=== PATIENT | male | born 1975 | race Caucasian/White ===

== ENCOUNTER → 2019-10-17 09:05 | Outpatient (BNVA) | payer OTHER, SELFPAY | PROVIDERS: Family Provider Nurse Practitioner Family; PCP Registered Nurse; Visit Provider Registered Nurse | DX: I10 Essential (primary) hypertension; E78.5 Hyperlipidemia, unspecified | CPT/HCPCS: 80053; 80061; 81000; 85025 ==

== ENCOUNTER → 2021-11-01 13:10 | Outpatient (BNVA) | payer SELFPAY | PROVIDERS: Family Provider Nurse Practitioner Family; PCP Registered Nurse; Visit Provider Emergency Medicine | DX: S99.922A Unspecified injury of left foot, initial encounter (principal); X58.XXXA Exposure to other specified factors, initial encounter | CPT/HCPCS: 73630 ==

== ENCOUNTER → 2022-07-07 08:37 | Outpatient (BNVA) | payer MEDICAID, SELFPAY | PROVIDERS: Family Provider Nurse Practitioner Family; PCP Registered Nurse; Visit Provider Registered Nurse | DX: Z71.3 Dietary counseling and surveillance (principal); I10 Essential (primary) hypertension; F34.1 Dysthymic disorder | CPT/HCPCS: 80053; 80061; 85025 ==

== ENCOUNTER 2022-07-28 17:44 | Emergency (ER) | payer MEDICAID, SELFPAY ==
[2022-07-28 17:55] VITALS: BP 161/97; PULSE 67; RESP 16; TEMP 36.7; O2SAT 97
--- NOTE | 2022-07-28 18:01 | ECG_ITS ---
[facility] Test Date: 2022-07-28 Pat Name: Marv Keenan Department: Room: Gender: Male Senior Scrum Master: : 1975 Requested By: Pop Juarez Order Number: [id number] Lilly MD: Archana Espino M.D. Measurements Intervals [place] Rate: 66 P: 9 SC: 162 QRS: 11 QRSD: 109 T: 195 QT: 420 QTc: 441 Interpretive Statements SINUS RHYTHM MODERATE T-WAVE ABNORMALITY, CONSIDER LATERAL ISCHEMIA [-0.1+ mV T-WAVE IN I/aVL/V5/V6] MODERATE T-WAVE ABNORMALITY, CONSIDER INFERIOR ISCHEMIA [-0.1+ mV T-WAVE IN II/aVF] No previous ECG available for comparison Electronically Signed On 07-28-2022 20:35:38 CDT by Archana Espino M.D. [id number]
--- NOTE | 2022-07-28 18:08 | XRR_ITS ---
PROCEDURE INFORMATION: Exam: XR Chest Exam date and time: 07/28/2022 6:14 PM Age: 47 years old Clinical indication: Pain; Chest pressure; Additional info: Cp TECHNIQUE: Imaging protocol: Radiologic exam of the chest. Views: 1 view. COMPARISON: No relevant prior studies available. FINDINGS: Lungs: Unremarkable. No consolidation. Pleural spaces: Unremarkable. No pleural effusion. No pneumothorax. Heart/Mediastinum: Unremarkable. No cardiomegaly. Bones/joints: Unremarkable. XR/XR chest 1V portable [id number] IMPRESSION: No acute findings.
--- NOTE | 2022-07-28 18:21 | W.ED.CHESTPA ---
HPI - Chest Pain General: Chief Complaint: Chest Pain Stated Complaint: BP issues Time Seen by Provider: 07/28/22 18:08 Source: patient Mode of arrival: ambulatory Limitations: no limitations History of Present Illness: 47-year-old male has a history of hypertension he states over the last week his blood pressures been running high states he is felt slightly dizzy over the weekend he states over the last 2 days he has been having some chest pressure goes to his left arm. The pain is mild he rates it a 2 out of 10 he denies any worsening improving factors denies any vomiting or diarrhea. Associated symptoms: Deny abdominal pain, dyspnea, fever(s), nausea or vomiting Review of Systems Const: Denies: fever(s), chills, body aches or change in appetite Eyes: Denies: eye discomfort ENMT: Denies: throat pain or dental pain Card: Reports: chest pain Resp: Denies: dyspnea GI: Denies: abdominal pain, nausea, vomiting or diarrhea : Denies: dysuria Musc: Denies: neck pain or back pain Skin/Breast: Denies: rash Neuro: Reports: numbness in extremities; Denies: headache(s) PFS ED PFSH: Medical History Depression Essential hypertension Social History Smoking and tobacco status: never smoked Second hand smoke exposure: No Smoking risk assessment/counseling performed?: No Alcohol intake: never Substance/Drug Use: never Physical Exam Const: COMMON NORMALS: no acute distress, patient oriented x3 and healthy appearing HENMT: COMMON NORMALS: normocephalic and atraumatic HEAD & SCALP: normocephalic and atraumatic Eye: COMMON NORMALS: Equal, round and reactive pupils present and EOMs intact bilaterally PUPIL: Yes Equal, round and reactive pupils present Neck/C-Spine: COMMON NORMALS: supple Chest: COMMONS NORMALS: normal inspection of the chest and normal palpation of entire chest wall Resp: COMMON NORMALS: normal respiratory effort, No retractions, No use of accessory muscles and clear to auscultation bilaterally AUSCULTATION: clear to auscultation bilaterally Cardio: COMMON NORMALS: regular rate, regular rhythm and No murmurs present (Cardio) RATE: regular rate RHYTHM: regular rhythm GI: COMMON NORMALS: Normal to inspection, nondistended, normoactive bowel sounds present, Soft to palpation, non-tender and no masses PALPATION: Yes Soft to palpation Extremity: COMMON NORMALS: normal to inspection and full ROM Neuro: COMMON NORMALS: patient oriented x3, moves all extremities and no focal motor deficits Psych: COMMON NORMALS: mental status grossly normal, Normal thought process present and cooperative THOUGHT PROCESS: Normal thought process present Skin: COMMON NORMALS: no rashes or lesions noted and no wounds GENERAL SKIN EXAM: no rashes or lesions noted Course Vital Signs: Vital signs: Vital Signs Temperature 98.1 F 07/28/22 17:55 Pulse Rate 72 07/28/22 22:09 Respiratory Rate 16 07/28/22 22:09 Blood Pressure 156/83 07/28/22 22:09 Pulse Oximetry 97 07/28/22 22:09 Oxygen Delivery Me thod Room Air 07/28/22 21:46 MDM - Chest Pain Medical Decision Making Patient presents with hypertension along with chest pain. He had complained of some facial droop this been going on for weeks not noticed any here on exam is neuro exam is normal with no deficits head CT was normal he is symptom-free currently after his blood pressure is improved I did offer admission he states he feels improved would like to go home his repeat troponin was normal we will increase his metoprolol from 25 twice daily to 50 twice daily he has an appointment with his PCP next week on the he is follow-up as scheduled did inform he likely should get an outpatient stress test return if worsening. Medical Records I reviewed the patient's medical records. Lab Data I reviewed the patient's lab results. 07/28/22 18:39 07/28/22 18:39 Radiology Impressions Chest X-Ray 07/28/22 18:08 IMPRESSION: No acute findings. Head CT 07/28/22 19:00 IMPRESSION: No acute intracranial abnormality. Laboratory Results WBC 8.6 10^3/uL (4.0-10.0) 07/28/22 18:39 RBC 5.60 10^6/uL (4.1-5.3) H 07/28/22 18:39 Hgb 16.0 g/dL (11.7-16.6) 07/28/22 18:39 Hct 46.7 % (42.0-52.0) 07/28/22 18:39 MCV 83.4 fl (80-94) 07/28/22 18:39 MCH 28.6 pg (28.0-34.0) 07/28/22 18: MCHC 34.3 g/dL (30.0-36.0) 07/28/22 18:39 RDW 12.2 % (12.1-15.1) 07/28/22 18:39 Plt Count 231 10^3/cmm (130-400) 07/28/22 18:39 MPV 9.5 fL (7.4-10.4) 07/28/22 18:39 Neut % (Auto) 53.0 % 07/28/22 18:39 Lymph % (Auto) 35.2 % 07/28/22 18:39 [place] % (Auto) 9.1 % 07/28/22 18:39 Eos % (Auto) 1.6 % 07/28/22 18:39 Baso % (Auto) 0.8 % 07/28/22 18:39 Neut # (Auto) 4.55 10^3/uL (1.8-7.7) 07/28/22 18:39 Lymph # (Auto) 3.0 10^3/uL (0.8-4.8) 07/28/22 18:39 [place] # (Auto) 0.8 10^3/uL (0.2-0.9) 07/28/22 18:39 Eos # (Auto) 0.1 10^3/uL (0.0-0.8) 07/28/22 18: Baso # (Auto) 0.1 10^3/uL (0.0-0.1) 07/28/22 18: Nucleated RBC % (auto) 0 % 07/28/22 18: Nucleated RBCs # 0.0 /100WBC 07/28/22 18:39 PT 13.40 SECONDS (12.1-14.9) 07/28/22 18:39 INR 0.99 (0.8-1.2) 07/28/22 18:39 Sodium 139 mmol/L (136-145) 07/28/22 18:39 Potassium 3.6 mmol/L (3.5-5.1) 07/28/22 18:39 Chloride 101 mmol/L (98-107) 07/28/22 18:39 Carbon Dioxide 23 mmol/L (22-29) 07/28/22 18:39 Anion Gap 18.6 (5-19) 07/28/22 18:39 BUN 19 mg/dL (6-20) 07/28/22 18:39 Creatinine 1.1 mg/dL (0.7-1.2) 07/28/22 18:39 GFR Calculation 71.8 mL/min (90-130) L 07/28/22 18:39 Glucose 78 mg/dL (65-115) 07/28/22 18:39 Calculated Osmolality 289 mOsm/kg (285-295) 07/28/22 18:39 Calcium 9.3 mg/dL (8.5-10.5) 07/28/22 18:39 Total Bilirubin 0.5 mg/dL (0.15-1.2) 07/28/22 18:39 AST 13 U/L (0-40) 07/28/22 18:39 ALT 22 U/L (0-41) 07/28/22 18:39 Alkaline Phosphatase 78 U/L (40-130) 07/28/22 18:39 Troponin T Baseline 10 ng/L (0-15) 07/28/22 18:39 Troponin T 120 Minute 9.82 ng/L (0-15) 07/28/22 20:37 Delta Troponin T -0.18 ABS# (0-10) L 07/28/22 20:37 Total Protein 7.5 g/dL (6.6-8.7) 07/28/22 18:39 Albumin 4.6 g/dL (3.5-5.2) 07/28/22 18:39 Globulin 2.9 g/dL (1.3-4.6) 07/28/22 18:39 Lipase 43 U/L (13-60) 07/28/22 18:39 EKG Data EKG 1: I personally reviewed and interpreted this EKG as follows: EKG interpretation date: 07/28/22 EKG interpretation time: 18:01 Interpretation: nsr hr [address] elevation t wave inveris in I and II qrs 109 qtc 433 Discharge Plan Discharge Patient Disposition: Home Clinical Impression: Chest pain, Hypertension Condition: Stable Prescriptions: New metoprolol tartrate 50 mg tablet 50 mg PO BID Qty: 60 0RF Discontinued metoprolol tartrate 25 mg tablet 25 mg PO BID 30 Days Qty: 60 0RF Rx Instructions: pt to take 50mg BID starting 07/20 No Action rosuvastatin 10 mg tablet 10 mg PO DAILY Qty: 90 1RF albuterol sulfate 90 mcg/actuation HFA aerosol inhaler 2 puff inhalation Q6H PRN (Reason: shortness of breath or wheezing) Qty: 8.5 0RF citalopram [Celexa] 40 mg tablet 40 mg PO DAILY Qty: 90 1RF amlodipine-olmesartan 5-20 mg tablet 1 tab PO DAILY Qty: 90 0RF Rx Instructions: Pt to start taking 2 tab of current script starting 07/07 Discharge Orders: Discharge ED (Routine); Ordered 07/28/22 Ordered By: Pop Juarez Referrals: Rosy Martinez, WEED CONTROL INSPECTOR [Primary Care Provider] - 1-3 days Discharge Diet: Advance as tolerated Discharge Activity: Resume usual activity Patient Instructions: Chest Pain (ED), Hypertension (ED) Coding Level of Care Code ED Loft Worker Head for Antoine Clark
[2022-07-28 18:43] VITALS: BP 167/113; PULSE 64; RESP 20; O2SAT 97
[2022-07-28 18:52] LABS: Basophils # 0.1 10^3/uL (0.0-0.1); Basophils % 0.8 %; Eosinophils # 0.1 10^3/uL (0.0-0.8); Eosinophils % 1.6 %; Hematocrit 46.7 % (42.0-52.0); Lymphocytes % 35.2 %; Mean Corpuscular HGB Conc 34.3 g/dL (30.0-36.0); Mean Corpuscular Hemoglobin 28.6 pg (28.0-34.0); Mean Corpuscular Volume 83.4 fl (80-94); Mean Platelet Volume 9.5 fL (7.4-10.4); Monocytes # 0.8 10^3/uL (0.2-0.9); Monocytes % 9.1 %; Neutrophils # 4.55 10^3/uL (1.8-7.7); Nucleated Red Blood Cells % 0 %; Platelet Count 231 10^3/cmm (130-400); Red Cell Distribution Width 12.2 % (12.1-15.1); White Blood Count 8.6 10^3/uL (4.0-10.0)
--- NOTE | 2022-07-28 19:00 | CTR_ITS ---
PROCEDURE INFORMATION: Exam: CT Head Without Contrast Exam date and time: 07/28/2022 7:54 PM Age: 47 years old Clinical indication: Pain; Headache; Additional info: UDRON TECHNIQUE: Imaging protocol: Computed tomography of the head without contrast. Radiation optimization: All CT scans at this facility use at least one of these dose optimization techniques: automated exposure control; mA and/or kV adjustment per patient size (includes targeted exams where dose is matched to clinical indication); or iterative reconstruction. REPORTING DATA: Count of CT and Cardiac NM exams in prior 12 months: This patient has received 0 known CTs and 0 known cardiac nuclear medicine studies in the 12 months prior to the current study. COMPARISON: No relevant prior studies available. RADIATION DOSE METRICS: Total DLP (mGy-cm): 1073 FINDINGS: Brain: No hemorrhage. No edema. Mild diffuse cerebral atrophy and sequela of chronic small vessel ischemic disease. No mass effect. Cerebral ventricles: No ventriculomegaly. Paranasal sinuses: Visualized sinuses are unremarkable. No fluid levels. Mastoid air cells: Visualized mastoid air cells are well aerated. Bones/joints: Unremarkable. No acute fracture. Soft tissues: Unremarkable. CT/CT head wo con* [id number] IMPRESSION: No acute intracranial abnormality.
[2022-07-28 19:07] LABS: Alanine Aminotransferase 22 U/L (0-41); Albumin Level 4.6 g/dL (3.5-5.2); Alkaline Phosphatase 78 U/L (40-130); Anion Gap 18.6 (5-19); Aspartate Amino Transferase 13 U/L (0-40); Blood Urea Nitrogen 19 mg/dL (6-20); Calcium 9.3 mg/dL (8.5-10.5); Carbon Dioxide 23 mmol/L (22-29); Chloride 101 mmol/L (98-107); Globulin 2.9 g/dL (1.3-4.6); Glomerular Filtration Rate 71.8 mL/min (90-130); Glucose 78 mg/dL (65-115); Lipase 43 U/L (13-60); Osmolality Calculated 289 mOsm/kg (285-295); Potassium 3.6 mmol/L (3.5-5.1); Sodium 139 mmol/L (136-145); Total Bilirubin 0.5 mg/dL (0.15-1.2); Total Protein 7.5 g/dL (6.6-8.7)
[2022-07-28 19:10] LABS: Troponin(5th) Baseline 10 ng/L (0-15)
[2022-07-28] MEDS: ondansetron 2 mg/ML SDV 2 mL 4 MG IVP (19:14)
[2022-07-28] MEDS: hyDRALAzine 20 mg/mL INJ 1 mL 10 MG IVP (19:16)
[2022-07-28] MEDS: morphine 4 mg/mL SDV 1 mL IVP (19:16)
[2022-07-28 19:17] LABS: INR 0.99 (0.8-1.2)
[2022-07-28] MEDS: aspirin 81 mg Chew Tablet 324 MG PO (19:17)
--- NOTE | 2022-07-28 19:19 | PC.NURSE ---
meds were pushed by Noah Segura RN
[2022-07-28 19:24] VITALS: BP 171/108; PULSE 68; RESP 13; O2SAT 97
[2022-07-28 19:30] VITALS: BP 138/81; PULSE 76; RESP 14; O2SAT 99
--- NOTE | 2022-07-28 20:08 | ECG_ITS ---
[facility] Test Date: 2022-07-28 Pat Name: Marv Keenan Department: Room: Gender: Male Emr Implementation Specialist: : 1975 Requested By: Pop Juarez Order Number: [id number] Lilly MD: Archana Espino M.D. Measurements Intervals [place] Rate: 62 P: 19 [place]: 191 QRS: 13 QRSD: 115 T: 195 QT: 450 QTc: 459 Interpretive Statements SINUS RHYTHM MODERATE INTRAVENTRICULAR CONDUCTION DELAY [110+ ms QRS DURATION] MODERATE T-WAVE ABNORMALITY, CONSIDER LATERAL ISCHEMIA [-0.1+ mV T-WAVE IN I/aVL/V5/V6] MODERATE T-WAVE ABNORMALITY, CONSIDER INFERIOR ISCHEMIA [-0.1+ mV T-WAVE IN II/aVF] Compared to ECG 07/28/2022 18:01:50 Intraventricular conduction delay now present T-wave abnormality still present Possible ischemia still present Electronically Signed On 07-28-2022 20:45:14 CDT by Archana Espino M.D. [id number]
[2022-07-28] MEDS: hyDRALAzine 20 mg/mL INJ 1 mL IVP (20:55)
[2022-07-28 20:59] LABS: Troponin 5 2HR 9.82 ng/L (0-15)
[2022-07-28 21:20] LABS: Troponin 5 2HR Delta -0.18 ABS# (0-10)
[2022-07-28 21:46] VITALS: BP 138/81; PULSE 79; RESP 13; O2SAT 99
[2022-07-28 22:09] VITALS: BP 156/83; PULSE 72; RESP 16; O2SAT 97
== END 2022-07-28 22:11 | disposition home or self-care (01) ==
PROVIDERS: Emergency Provider Emergency Medicine; PCP Registered Nurse
DX: R07.9 Chest pain, unspecified (principal); I10 Essential (primary) hypertension
CPT/HCPCS: 36415; 70450; 71045; 80053; 83690; 84484; 85025; 85610; 93005; 96374; 96375; 96376; 99285; J0360; J2270; J2405

== ENCOUNTER 2022-11-10 19:19 | Inpatient (IN) | payer MEDICAID, SELFPAY ==
[2022-11-10 19:30] VITALS: BP 226/137; PULSE 63; RESP 20; TEMP 36.9; O2SAT 94; BMI 40.7
--- NOTE | 2022-11-10 19:48 | ECG_ITS ---
[facility] Test Date: 2022-11-10 Pat Name: Marv Keenan Department: Room: Gender: Male Director Report: : 1975 Requested By: Neto Lane Order Number: [id number] Lilly MD: Mary Alice Oakes M.D. Measurements Intervals [place] Rate: 68 P: 50 MN: 195 QRS: 6 QRSD: 114 T: 171 QT: 454 QTc: 483 Interpretive Statements SINUS RHYTHM LEFT VENTRICULAR HYPERTROPHY AND ST-T CHANGE [VOLTAGE CRITERIA PLUS ST/T ABNORMALITY] Compared to ECG 07/28/2022 20:06:42 Left ventricular hypertrophy now present ST (T wave) deviation now present Intraventricular conduction delay no longer present T-wave abnormality no longer present Possible ischemia no longer present Electronically Signed On 11-10-2022 21:25:45 CDT by Mary Alice Oakes M.D. [id number]
--- NOTE | 2022-11-10 19:48 | CTR_ITS ---
PROCEDURE INFORMATION: Exam: CT Head Without Contrast Exam date and time: 11/10/2022 7:52 PM Age: 47 years old Clinical indication: Stroke-like symptoms; Lt upper extremity and lt lower extremity weakness; Additional info: Symptoms of acute stroke TECHNIQUE: Imaging protocol: Computed tomography of the head without contrast. Radiation optimization: All CT scans at this facility use at least one of these dose optimization techniques: automated exposure control; mA and/or kV adjustment per patient size (includes targeted exams where dose is matched to clinical indication); or iterative reconstruction. Other technique: STROKE PROTOCOL was implemented. REPORTING DATA: Count of CT and Cardiac NM exams in prior 12 months: This patient has received [address] and 0 known cardiac nuclear medicine studies in the 12 months prior to the current study. COMPARISON: CT head wo con* [id number] 07/28/2022 7:54 PM RADIATION DOSE METRICS: Total DLP (mGy-cm): 1154 FINDINGS: Brain: Mild white matter chronic microvascular changes are noted. No hemorrhage or evidence of acute infarction. Cerebral ventricles: No ventriculomegaly. Paranasal sinuses: Visualized sinuses are unremarkable. No fluid levels. Mastoid air cells: Visualized mastoid air cells are well aerated. Bones/joints: Unremarkable. No acute fracture. Soft tissues: Unremarkable. CT/CT head thrombolytic [id number] IMPRESSION: No acute intracranial abnormality. ASSESSMENT: ASPECTS ([place] Stroke Program Early CT Score) is 10.
[2022-11-10] MEDS: labetalol 5 mg/mL SDV 20mL 20 MG IVP ×2 (20:00→20:19)
[2022-11-10 20:01] LABS: Basophils # 0.1 10^3/uL (0.0-0.1); Eosinophils # 0.2 10^3/uL (0.0-0.8); Eosinophils % 2.1 %; Hematocrit 44.5 % (37-53); Lymphocytes # 3.1 10^3/uL (0.8-4.8); Lymphocytes % 37.6 %; Mean Corpuscular HGB Conc 35.3 g/dL (30-55); Mean Corpuscular Volume 85.1 fl (82-101); Mean Platelet Volume 9.6 fL (7.4-10.4); Monocytes % 11.8 %; Neutrophils # 3.84 10^3/uL (1.8-7.7); Neutrophils % 47.1 %; Nucleated Red Blood Cells % 0 %; Platelet Count 198 10^3/cmm (157-399); Red Blood Count 5.23 10^6/uL (3.85-5.65); Red Cell Distribution Width 12.5 % (12.1-15.1); White Blood Count 8.14 10^3/uL (3.29-11.43)
[2022-11-10 20:03] LABS: Glucose Point of Care 89 mg/dL (70-110)
[2022-11-10 20:10] VITALS: BP 219/121; PULSE 63; RESP 18; O2SAT 96
[2022-11-10 20:12] LABS: INR 1.01 (0.8-1.2); Partial Thromboplastin Time 29.4 SECONDS (23.9-36.7)
[2022-11-10] MEDS: LORazepam 2 mg/mL INJ 1 mL 1 MG IVP (20:16)
--- NOTE | 2022-11-10 20:19 | W.ED.AMS ---
HPI - Altered Mental Status General: Chief Complaint: Altered Mental Status Stated Complaint: ams Time Seen by Provider: 11/10/22 19:27 History of Present Illness: Patient presents to the ER for increased confusion and left sided weakness. states they got into an argument at approximately 430. After that he started having feelings of itching and burning all over his head started hurting his back. His blood pressure went up. And he was talking and not making sense. Patient does have a history of high blood pressure that they have been working on for the last several weeks to try to lower. Patient has never had any strokelike symptoms or deficits in the past. Code stroke was called patient was rushed to ct and a patient arrived back in ER shortly after Dr. Schmidt was there to evaluate the patient. Review of Systems General: Reports: 10 or more systems reviewed and unremarkable except in HPI and below PFSH ED PFSH: Medical History Depression Essential hypertension Social History Smoking and tobacco status: never smoked Second hand smoke exposure: No Smoking risk assessment/counseling performed?: No Alcohol intake: never Substance/Drug Use: never Physical Exam Const: COMMON NORMALS: no acute distress, average body habitus, patient oriented x3, no limitations, healthy appearing, alert and well nourished HENMT: COMMON NORMALS: normocephalic, atraumatic, hearing grossly normal bilaterally, external ears normal, Normal external nose present and moist oral mucous membranes HEAD & SCALP: normocephalic and atraumatic NOSE: Normal external nose present EXTERNAL EAR: Yes external ears normal Eye: COMMON NORMALS: Equal, round and reactive pupils present, EOMs intact bilaterally, conjunctivae normal and no scleral icterus CONJUNCTIVA: Yes conjunctivae normal PUPIL: Yes Equal, round and reactive pupils present Neck/C-Spine: COMMON NORMALS: full ROM, no lymphadenopathy, supple, no meningeal signs, no JVD and Thyroid normal THYROID: Thyroid normal Lymph: LYMPHATIC: no lymphadenopathy noted and no lymphedema noted Chest: COMMONS NORMALS: normal inspection of the chest and normal palpation of entire chest wall Resp: COMMON NORMALS: normal respiratory effort, No retractions, No use of accessory muscles and clear to auscultation bilaterally AUSCULTATION: clear to auscultation bilaterally Cardio: COMMON NORMALS: no JVD, regular rate, regular rhythm, S1 normal heart sound present, S2 normal heart sound present, No gallops present (Cardio), No clicks present (Cardio), No murmurs present (Cardio) and No rub (Cardio) RATE: regular rate RHYTHM: regular rhythm HEART SOUNDS: S1 normal heart sound present and S2 normal heart sound present GI: COMMON NORMALS: Normal to inspection, nondistended, normoactive bowel sounds present, Soft to palpation, non-tender, No hepatosplenomegaly present and no masses PALPATION: Yes Soft to palpation and Yes No hepatosplenomegaly present : COMMON NORMALS: Yes no CVA tenderness BLADDER/KIDNEY EXAM: Yes no CVA tenderness Back/Pelvis: COMMON NORMALS: no CVA tenderness Neuro: COMMON NORMALS: patient oriented x3 SENSORIUM/ORIENTATION: Yes alert MENINGEAL SIGNS: Yes no meningeal signs OTHER: Dr. Schmidt at bedside to evaluate patient she scored patient to for left lower extremity weakness. Course Vital Signs: Vital signs: Vital Signs Temperature 98.5 F 11/10/22 19:30 Pulse Rate 79 11/10/22 21:15 Respiratory Rate 17 11/10/22 21:15 Blood Pressure 179/113 11/10/22 21:15 Pulse Oximetry 94 11/10/22 21:15 MDM - Altered Mental Status Medical Decision Making Patient presented to the ER with complaints of left-sided weakness, altered mental status, and hypertension. Code stroke was called patient was immediately sent down to CT scanner where he elicited some left-sided upper extremity and lower extremity weakness and very mild left facial droop. Upon arrival back to the room Dr. Schmidt was at bedside and performed neuro exam along with questioning. She gave patient a NIH scale score 2 secondary to lower extremity weakness on his left side. She is against giving the patient tPA due to such a low score and elevated blood pressure. His symptoms are improving as his blood pressure is normalizing.Jacob Lawson who agreed to place the patient observation for hypertensive encephalopathy.. Differential Diagnosis Likely altered mental status; Unlikely alcoholic intoxication, delirium, dementia, hypoglycemia, hyponatremia, subarachnoid hemorrhage or sepsis Medical Records I reviewed the patient's medical records. Lab Data I reviewed the patient's lab results. 11/10/22 19:50 11/10/22 19:[address] 11/10/22 19:48 IMPRESSION: No acute intracranial abnormality. ASSESSMENT: ASPECTS ([place] Stroke Program Early CT Score) is 10. Laboratory Results WBC 8.14 10^3/uL (3.29-11.43) 11/10/22 19:50 RBC 5.23 10^6/uL (3.85-5.65) 11/10/22 19:50 Hgb 15.70 g/dL (11.27-16.99) 11/10/22 19:50 Hct 44.5 % (37-53) 11/10/22 19:50 MCV 85.1 fl (82-101) 11/10/22 19:50 MCH 30.0 pg (27-33) 11/10/22 19:50 MCHC 35.3 g/dL (30-55) 11/10/22 19:50 RDW 12.5 % (12.1-15.1) 11/10/22 19:50 Plt Count 198 10^3/cmm (157-399) 11/10/22 19:50 MPV 9.6 fL (7.4-10.4) 11/10/22 19:50 Neut % (Auto) 47.1 % 11/10/22 19:50 Lymph % (Auto) 37.6 % 11/10/22 19:50 [place] % (Auto) 11.8 % 11/10/22 19:50 Eos % (Auto) 2.1 % 11/10/22 19:50 Baso % (Auto) 1.0 % 11/10/22 19:50 Neut # (Auto) 3.84 10^3/uL (1.8-7.7) 11/10/22 19:50 Lymph # (Auto) 3.1 10^3/uL (0.8-4.8) 11/10/22 19:50 [place] # (Auto) 1.0 10^3/uL (0.2-0.9) H 11/10/22 19:50 Eos # (Auto) 0.2 10^3/uL (0.0-0.8) 11/10/22 19:50 Baso # (Auto) 0.1 10^3/uL (0.0-0.1) 11/10/22 19:50 Nucleated RBC % (auto) 0 % 11/10/22 19:50 Nucleated RBCs # 0.0 /100WBC 11/10/22 19:50 PT 13.60 SECONDS (12.1-14.9) 11/10/22 19:50 INR 1.01 (0.8-1.2) 11/10/22 19:50 APTT 29.4 SECONDS (23.9-36.7) 11/10/22 19:50 Sodium 140 mmol/L (136-145) 11/10/22 19:50 Potassium 3.4 mmol/L (3.5-5.1) L 11/10/22 19:50 Chloride 100 mmol/L (98-107) 11/10/22 19:50 Carbon Dioxide 28 mmol/L (22-29) 11/10/22 19:50 Anion Gap 15.4 (5-19) 11/10/22 19:50 BUN 22 mg/dL (6-20) H 11/10/22 19:50 Creatinine 1.2 mg/dL (0.7-1.2) 11/10/22 19:50 GFR Calculation 64.9 mL/min (90-130) L 11/10/22 19:50 Glucose 89 mg/dL (65-115) 11/10/22 19:50 POC Glucose 89 mg/dL (70-110) 11/10/22 19:59 Calculated Osmolality 293 mOsm/kg (285-295) 11/10/22 19:50 Calcium 9.8 mg/dL (8.5-10.5) 11/10/22 19:50 Magnesium 2.0 mg/dL (1.7-2.3) 11/10/22 19:50 Total Bilirubin 0.7 mg/dL (0.15-1.2) 11/10/22 19:50 AST 18 U/L (0-40) 11/10/22 19:50 ALT 28 U/L (0-41) 11/10/22 19:50 Alkaline Phosphatase 80 U/L (40-130) 11/10/22 19:50 Total Protein 7.6 g/dL (6.6-8.7) 11/10/22 19:50 Albumin 4.7 g/dL (3.5-5.2) 11/10/22 19:50 Globulin 2.9 g/dL (1.3-4.6) 11/10/22 19:50 TSH 2.52 uIU/mL (0.27-4.20) 11/10/22 19:50 EKG Data EKG 1: I personally reviewed and interpreted this EKG as follows: EKG interpretation date: 11/10/22 EKG interpretation time: 20:18 Prior EKG tracings: not available for review Interpretation: EKG showed ventricular rate 60 beats minute, MD interval 195, QRS duration 114, sinus rhythm, left ventricular hypertrophy and ST T wave changes. Discharge Plan Discharge Patient Disposition: Placed in Observation Clinical Impression: Essential hypertension, Altered mental status, Encephalopathy, hypertensive Coding Level of Care Code ED Lacquer Polisher for Antoine Clark
[2022-11-10 20:32] LABS: Alanine Aminotransferase 28 U/L (0-41); Albumin Level 4.7 g/dL (3.5-5.2); Alkaline Phosphatase 80 U/L (40-130); Anion Gap 15.4 (5-19); Aspartate Amino Transferase 18 U/L (0-40); Blood Urea Nitrogen 22 mg/dL (6-20); Calcium 9.8 mg/dL (8.5-10.5); Carbon Dioxide 28 mmol/L (22-29); Chloride 100 mmol/L (98-107); Globulin 2.9 g/dL (1.3-4.6); Glomerular Filtration Rate 64.9 mL/min (90-130); Glucose 89 mg/dL (65-115); Osmolality Calculated 293 mOsm/kg (285-295); Potassium 3.4 mmol/L (3.5-5.1); Sodium 140 mmol/L (136-145); Thyroid Stimulating Hormone 2.52 uIU/mL (0.27-4.20); Total Bilirubin 0.7 mg/dL (0.15-1.2); Total Protein 7.6 g/dL (6.6-8.7)
[2022-11-10 21:15] VITALS: BP 179/113; PULSE 79; RESP 17; O2SAT 94
--- NOTE | 2022-11-10 21:16 | PC.NURSE ---
2015 Stroke alert was called at 1941. Dr [address] in CT looking at head CT. Patient has left side deficits on arrival. Originally had said there was a neuro change a hour before arrival. Dr Caldwell came and assessed patient and stated the patient started having neuro changes at 430 pm, but in the last hour before arrival patient had a worsening and she brought him in. Patient bp elevated, labetolol given twice. TPA was not given as blood pressure was too high, and window for the drug was closing, dr caldwell made decision to not give TPA. 2118 Patient is now able to move left side. went home briefly, and will be returning tonight.
[2022-11-10 21:52] VITALS: BP 158/108; PULSE 79; RESP 15; O2SAT 92
[2022-11-10 22:25] VITALS: BP 196/30; PULSE 70; RESP 15; TEMP 36.8; O2SAT 96
[2022-11-10] MEDS: hyDRALAzine 20 mg/mL INJ 1 mL 10 MG IVP (23:21)
[2022-11-10] MEDS: hyDRALAzine 50 mg Tablet PO (23:21)
[2022-11-10 23:50] VITALS: PULSE 82; RESP 16; TEMP 36.4; O2SAT 96
[2022-11-10 23:57] LABS: Add Urine Microscopic? YES; Bilirubin Urine Neg (Negative); Blood Urine 2+ (Negative); Glucose Urine UA Norm (Normal); Ketones Urine Negative (Negative); Leukocyte Esterase Urine Negative (Negative); Nitrate Urine Negative (Negative); Protein Urine Neg (Negative); Urine Appearance Clear (CLEAR); Urine Color Yellow (Yellow); Urobilinogen Urine Neg (Negative); pH Urine 5 (5-7)
[2022-11-10 23:58] LABS: Add Urine Culture? No; Amphetamines Screen Urine Negative (Negative); Bacteria Urine TRACE /hpf; Barbiturates Screen Urine Negative (Negative); Benzodiazepines Screen Urine Positive (Negative); Cocaine Screen Urine Negative (Negative); Mucus Urine 1+ /hpf; Opiate Screen Urine Negative (Negative); PCP Screen Urine Negative (Negative); RBC Urine 0-4 /hpf (0-2); THC Screen Urine Negative (Negative)
[2022-11-11] VITALS (17 sets, daily range): BP systolic 130–184; BP diastolic 64–122; PULSE 60–81; RESP 15–17; TEMP 36.7–36.9; O2SAT 95–97
--- NOTE | 2022-11-11 00:50 | PM.HP ---
Providers/Chief Complaint Admitting Physician: Adore Lawson MD Primary Care Provider: FROYLAN Bae Chief Complaint: ams History of Present Illness Marv Keenan is a 47 year old male with history of hypertension anxiety seasonal allergies was brought in by the for for abnormal behavior and not feeling well. As per the they had an argument this afternoon when he suddenly started leaning down had itching all over the body and had irrelevant speech. On arrival in ER he complained of left lower leg weakness and was found to have altered mental status. BP at that time was 254/120 he received 40 mg labetalol and 1 mg Ativan following which BP was 178/99. Stroke code was initiated but on further evaluation it was found to be more psychogenic episode. He had a negative chest x-ray CT head and EKG was within normal limits. On further questioning on the floor, patient was alert awake oriented x3 with minimal weakness in the left lower leg. He was recently prescribed 4 different blood pressure medications by PCP but he was taking only p.o. chlorthalidone. He denies any dizziness fever nausea vomiting chest pain abdominal pain or urinary complaints. Did not have similar complaints in the past. Blood pressure was still 196/120 but he is asymptomatic. Review of Systems Narrative: As per HPI Medications/Allergies Home Medications Medication Instructions Recorded Confirmed Last Taken Type albuterol sulfate 90 mcg/actuation 2 puff inhalation Q6H PRN 06/09/22 11/10/22 Unknown Rx aerosol inhaler shortness of breath or wheezing #8.5 grams citalopram 40 mg tablet (Celexa) 40 mg PO DAILY #90 tabs 07/07/22 11/10/22 11/10/22 06:00 Rx metoprolol tartrate 50 mg tablet 50 mg PO BID #60 tabs 10/09/22 11/10/22 11/10/22 06:00 Rx rosuvastatin 10 mg tablet 10 mg PO DAILY #30 tabs 10/09/22 11/10/22 11/10/22 06:00 Rx chlorthalidone 25 mg tablet 25 mg PO DAILY 11/10/22 11/10/22 11/10/22 06:00 History Allergies Allergy/AdvReac Type Severity Reaction Status Date / Time No Known Allergies Allergy Verified 10/09/22 15:30 PFSH Acute PFSH: Medical History Depression Essential hypertension Social History Smoking and tobacco status: never smoked Second hand smoke exposure: No Smoking risk assessment/counseling performed?: No Alcohol intake: never Substance/Drug Use: never Vitals/I&O/Wt Last Vital Signs Temp 97.6 F 11/10/22 23:50 Pulse 82 11/10/22 23:50 Resp 16 11/10/22 23:50 BP 196/30 11/10/22 22:25 Pulse Ox 96 11/10/22 23:50 O2 Del Method Room Air 11/10/22 23:50 Weight last 48 hrs Weight 117.934 kg Physical Exam Narrative: He is alert awake oriented x3 not in acute distress. Obese Chest clear to auscultation bilaterally Cardiovascular NAD Abdomen NAD Extremities no pedal edema seen Neurological speech normal no sensory or motor deficits noted Data 11/10/22 19:50 11/10/22 19:50 CT Head: Radiologist's impression: No acute intracranial abnormality EKG 1: My Interpretation: NSR, LVH A&P Assessment and plan (1) Altered mental status: Qualifiers: Altered mental status type: unspecified Qualified Code(s): R41.82 - Altered mental status, unspecified (2) Encephalopathy, hypertensive: (3) Hypertensive urgency: Plan Patient was found to have altered mental status abnormal behavior and left lower extremity weakness likely secondary to hypertensive encephalopathy due to hypertensive urgency. Patient has not been taking blood pressure medications appropriately. Counseled and explained about the risks of high blood pressure Will start p.o. hydralazine 50 mg every 8 hours IV hydralazine 10 mg x 1 dose now Check 2D echo in a.m. Resume home medications Monitor blood pressure every 4 hours Cardiac diet He is full code for now Neurological deficits on admission resolving No further intervention needed Attestations Medical Necessity Statement*: He needs continued hospitalization for 2 days for management of hypertensive urgency Time Spent in Patient Care: 30 minutes Coding Level of Care Code Acute Code for Chg Fwd Diagnoses Altered mental status R41.82 Altered mental status type: unspecified Encephalopathy, hypertensive I67.4 Hypertensive urgency I16.0 Time Spent (min) 30
[2022-11-11] MEDS: lisinopril 20 mg Tablet PO ×2 (05:01→09:02)
[2022-11-11] MEDS: labetalol 5 mg/mL SDV 20mL 10 MG IVP (05:02)
[2022-11-11 05:53] LABS: NT Pro B Type Natriuretic Pept 205 pg/mL (0-125)
[2022-11-11] MEDS: amlodipine 5 mg Tablet PO (06:35)
[2022-11-11] MEDS: citalopram 20 mg Tablet 40 MG PO (09:02)
[2022-11-11] MEDS: hyDRALAzine 50 mg Tablet PO ×2 (09:02→15:30)
[2022-11-11] MEDS: atorvastatin 40 mg Tablet PO (09:02)
[2022-11-11] MEDS: famotidine 20 mg/2 mL INJ IVP ×2 (09:03→21:50)
--- NOTE | 2022-11-11 09:30 | USCV_ITS ---
Marv Keenan Age: 47 Gender: M : 1975 Exam Date: 11/11/2022 10:42 Ordering Phys: Govind Gloria MD Technologist: Arjun Elias Exam Location: [facility] [place] Indication: hypertension urgency BP: 182 / 127 HR: 69 Rhythm: Sinus Technical Quality: Adequate MEASUREMENTS (Male / Female) Normal Values 2D ECHO LVOT Diameter 2.0 cm LV Ejection Fraction MOD 2C 55.7 % LV Ejection Fraction 2C AL 56.6 % LA Diameter 3.7 cm LA Width 4.1 cm LA Height 5.9 cm RA Width 3.5 cm RA Height 4.9 cm Aorta at Sinotubular Diameter 2.5 cm IVC Diameter 2.0 cm M-MODE Aortic Annulus Diameter 3.1 cm LA Ao Ratio MM 1.0 MV E Point Septal Separation 0.8 cm DOPPLER AV Peak Velocity 157.7 cm/s LVOT Peak Velocity 105.0 cm/s AV Area Cont Eq vti 2.6 cm squared AV Area Cont Eq pk 2.2 cm squared MV Peak Velocity 92.0 cm/s MV Area PHT 4.0 cm squared Mitral E to A Ratio 0.9 MV E' Velocity 40.5 cm/s Mitral E to MV E' Ratio 10.7 Mitral E to LV E' Lateral Ratio 11.3 Mitral E to LV E' Septal Ratio 10.2 TR Peak Velocity 311.9 cm/s TR Peak Gradient 38.9 mmHg TR Mean Velocity 237.0 cm/s TR Mean Gradient 24.3 mmHg TR Velocity Time Integral 72.1 cm Right Atrial Pressure 3.0 mmHg Pulmonary Artery Systolic Pressu 41.9 mmHg PV Peak Velocity 112.0 cm/s RV Acceleration Time 0.2 s RV Ejection Time 0.3 s RV AcT/ET 0.6 FINDINGS Left Ventricle Normal left ventricular size, systolic function and wall thickness, with no regional wall motion abnormalities. Grade I/IV diastolic dysfunction (abnormal relaxation filling pattern), normal to mildly elevated filling pressures. Left ventricular ejection fraction is estimated at 55 %. Right Ventricle Normal right ventricular size and systolic function. Mild pulmonary hypertension, RVSP 41.9 mmHg. Right Atrium The right atrium is normal in size. Left Atrium The left atrium is normal in size. Mitral Valve Structurally normal mitral valve without significant stenosis or prolapse. There is no mitral regurgitation. Aortic Valve Structurally normal aortic valve without significant sclerosis or stenosis. There is no aortic regurgitation. Tricuspid Valve Structurally normal tricuspid valve without significant stenosis or regurgitation. Pulmonary artery systolic pressure is normal. Pulmonic Valve Pulmonic valve not well visualized. Pericardium Normal pericardium without effusion. Aorta Normal ascending aorta dimension. IVC The inferior vena cava appears normal. CONCLUSIONS Normal left ventricular size, systolic function and wall thickness, with no regional wall motion abnormalities. Grade I/IV diastolic dysfunction (abnormal relaxation filling pattern), normal to mildly elevated filling pressures. Left ventricular ejection fraction is estimated at 55 %. Normal right ventricular size and systolic function. Mild pulmonary hypertension, RVSP 41.9 mmHg. There are no prior echocardiogram studies to compare. Dr. Rosendo Lewis MD (Electronically Signed) Final Date: 11 November 2022 13:11 S
--- NOTE | 2022-11-11 09:30 | USCV_ITS ---
Marv Keenan Age: 47 Gender: M : 1975 Exam Date: 11/11/2022 10:20 Ordering Phys: Govind Gloria MD Technologist: Arjun Elias [place] [facility] [place]: AMS Risk Factors: Previous Vascular Surgery: Right Brachial BP: / Left Brachial BP: / Right Left Velocity (cm/s) Spectral Plaque Velocity (cm/s) Spectral Plaque Syst/Diast Broadening Syst/Diast Broadening 80.80/ 17.10 Prox CCA 117.70/ 13.00 80.80/ 16.30 Mid CCA 88.00 / 16.20 62.90/ 13.20 Distal CCA 71.80 / 12.00 51.30/ 14.50 Prox ICA 42.70 / 15.50 47.40/ 17.60 Mid ICA 79.50 / 23.90 65.20/ 25.10 Distal ICA 74.30 / 28.20 119.10 ECA 118.00 0.59 ICA/CCA 0.90 Antegrade Vertebral Antegrade 27.20/ 9.60 cm/s 50.40/ 16.20 cm/s Tri Subclavian Tri 94.00 106.0 0 CONCLUSIONS Right ICA stenosis <50%. Left ICA stenosis <50%. Intimal thickening in the common carotid arteries and internal carotid arteries bilaterally. Normal antegrade Doppler flow noted in the right vertebral artery. Normal antegrade Doppler flow noted in the left vertebral artery. Anup French MD (Electronically Signed) Final Date: 11 November 2022 15:46 S
[2022-11-11] MEDS: metoprolol tartrate 50 mg Tablet PO ×2 (10:13→19:13)
[2022-11-11] MEDS: chlorthalidone 25 mg Tablet PO (10:13)
[2022-11-11 10:23] LABS: Alcohol Level < 10 mg/dL (0-10)
[2022-11-11 10:29] LABS: Alanine Aminotransferase 24 U/L (0-41); Alkaline Phosphatase 67 U/L (40-130); Aspartate Amino Transferase 18 U/L (0-40); Blood Urea Nitrogen 21 mg/dL (6-20); Calcium 8.9 mg/dL (8.5-10.5); Carbon Dioxide 25 mmol/L (22-29); Chloride 102 mmol/L (98-107); Globulin 2.8 g/dL (1.3-4.6); Glomerular Filtration Rate 71.8 mL/min (90-130); Glucose 81 mg/dL (65-115); Iron 90 ug/dL (59-158); Osmolality Calculated 294 mOsm/kg (285-295); Sodium 141 mmol/L (136-145); Total Bilirubin 0.6 mg/dL (0.15-1.2); Total Iron Binding Capacity 243 mcg/dl; Total Protein 6.8 g/dL (6.6-8.7); Unsaturated Iron Binding 153 ug/dL (112-347)
[2022-11-11 10:45] LABS: Vitamin B12 845 pg/mL (232-1245)
[2022-11-11] MEDS: acetaminophen 325 mg Tablet 650 MG PO (11:22)
--- NOTE | 2022-11-11 13:34 | PM.PN ---
Subjective Subjective: Admitted overnight. H&P and labs appreciated. Examination patient lying comfortably in bed, AOx3. Denies any nausea, vomiting, headache. States he is feeling a lot better. States usually at home his blood pressure ranges from 1 80-200 systolics with 110 diastolics. Has remained on room air. Vitals/I&O/Wt Last Vital Signs Temp 98.3 F 11/11/22 11:58 Pulse 81 11/11/22 11:58 Resp 17 11/11/22 11:58 BP 160/96 11/11/22 11:58 Pulse Ox 96 11/11/22 11:58 O2 Del Method Room Air 11/11/22 11:26 11/10/22 11/11/22 11/11/22 22:59 06:59 14:59 Intake Total 240 / 240 Balance 240 / 240 Weight last 48 hrs Weight 117.934 kg Physical Exam Narrative: General: No acute distress, AO x3 HEENT: PERRLA, pupils bilaterally equal and reactive Chest: Normal vesicular breath sounds, no added sounds, equal good air entry bilaterally CVS: S1-S2 regular, no murmurs, no tachycardia, no gallops, no rubs Abdomen: Soft, nontender, no organomegaly, bowel sounds present Neuro: No focal deficits, no facial deformity, AO x3, power 5/5 in all limbs Data 11/10/22 19:50 11/11/22 04:08 A&P Assessment and plan (1) Hypertensive urgency: With symptoms of altered mental status and hypertensive encephalopathy. Goal blood pressure less than 140/90 mmHg. Follow-up echocardiogram. Restart home medications of chlorthalidone 25 mg daily, metoprolol 50 mg twice daily. For now continue with hydralazine 50 mg 3 times daily, lisinopril 20 mg daily. Will uptitrate medications as for goal blood pressures. Cannot rule out underlying sleep apnea. Encouraged patient to follow-up with a primary care provider for a sleep study. Patient verbalized understanding. (2) Altered mental status: Most likely in setting of hypertensive encephalopathy. CT head negative for stroke overnight. Check carotid Dopplers to rule out carotid artery stenosis. Check A1c, lipid panel. Qualifiers: Altered mental status type: unspecified Qualified Code(s): R41.82 - Altered mental status, unspecified (3) Encephalopathy, hypertensive: Plan Full code Cardiac diet Heparin 5000 every 12 hourly for DVT prophylaxis Attestations Medical Necessity Statement*: Requires further hospitalization for management of hypertensive urgency while antihypertensives are further adjusted Diagnoses Hypertensive urgency I16.0 Altered mental status R41.82 Altered mental status type: unspecified Encephalopathy, hypertensive I67.4
[2022-11-11] MEDS: heparin 5,000 unit/mL INJ 1 mL 5000 UNIT SUBCUT (15:31)
[2022-11-11] MEDS: hyDRALAzine 50 mg Tablet 25 MG PO (21:33)
[2022-11-12] VITALS (7 sets, daily range): BP systolic 152–175; BP diastolic 95–99; PULSE 56–68; RESP 16–18; TEMP 36.7–36.8; O2SAT 94–96
[2022-11-12] MEDS: heparin 5,000 unit/mL INJ 1 mL 5000 UNIT SUBCUT (02:57)
[2022-11-12 05:08] LABS: Basophils # 0.1 10^3/uL (0.0-0.1); Basophils % 0.8 %; Eosinophils # 0.2 10^3/uL (0.0-0.8); Hematocrit 45.3 % (37-53); Lymphocytes # 2.7 10^3/uL (0.8-4.8); Lymphocytes % 31.3 %; Mean Corpuscular HGB Conc 34.4 g/dL (30-55); Mean Corpuscular Hemoglobin 30.5 pg (27-33); Mean Corpuscular Volume 88.5 fl (82-101); Mean Platelet Volume 9.5 fL (7.4-10.4); Monocytes # 0.9 10^3/uL (0.2-0.9); Monocytes % 10.1 %; Neutrophils # 4.69 10^3/uL (1.8-7.7); Neutrophils % 55.3 %; Nucleated Red Blood Cells % 0 %; Platelet Count 200 10^3/cmm (157-399); Red Blood Count 5.12 10^6/uL (3.85-5.65); Red Cell Distribution Width 12.9 % (12.1-15.1); White Blood Count 8.49 10^3/uL (3.29-11.43)
[2022-11-12 05:31] LABS: Alanine Aminotransferase 23 U/L (0-41); Alkaline Phosphatase 68 U/L (40-130); Anion Gap 14.3 (5-19); Aspartate Amino Transferase 15 U/L (0-40); Blood Urea Nitrogen 21 mg/dL (6-20); Calcium 8.9 mg/dL (8.5-10.5); Carbon Dioxide 25 mmol/L (22-29); Chloride 104 mmol/L (98-107); Globulin 2.9 g/dL (1.3-4.6); Glomerular Filtration Rate 59.2 mL/min (90-130); Glucose 90 mg/dL (65-115); Magnesium 2.2 mg/dL (1.7-2.3); Osmolality Calculated 293 mOsm/kg (285-295); Potassium 3.3 mmol/L (3.5-5.1); Sodium 140 mmol/L (136-145); Total Bilirubin 0.8 mg/dL (0.15-1.2); Total Protein 6.9 g/dL (6.6-8.7)
[2022-11-12 05:32] LABS: Chol HDL Ratio 5.21 mg/dL (1.0-5.00); Cholesterol 151 mg/dL (0-200); HDL Cholesterol 29 mg/dL (60-100); LDL Cholesterol Calculated 89 mg/dL (50-129); Triglycerides 165 mg/dL (0-150); VLDL Cholestrol Calculation 33 mg/dL (0-30)
[2022-11-12 05:33] LABS: Estmated Average Glucose 91; Hemoglobin A1C 4.8 % (4.0-6.0)
[2022-11-12 05:44] LABS: Folate Level < 20.0 ng/mL (4.5-32.2)
[2022-11-12] MEDS: lidocaine 1% 5 ML in potassium chloride premix 100 ML 25 ML IV (06:17)
[2022-11-12] MEDS: hyDRALAzine 50 mg Tablet 25 MG PO (09:10)
[2022-11-12] MEDS: lisinopril 20 mg Tablet PO (09:11)
[2022-11-12] MEDS: chlorthalidone 25 mg Tablet PO (09:11)
[2022-11-12] MEDS: metoprolol tartrate 50 mg Tablet PO (09:12)
[2022-11-12] MEDS: citalopram 20 mg Tablet 40 MG PO (09:12)
[2022-11-12] MEDS: atorvastatin 40 mg Tablet PO (09:12)
[2022-11-12] MEDS: famotidine 20 mg/2 mL INJ IVP (09:20)
--- NOTE | 2022-11-12 11:57 | P.DS_ITS ---
Discharge Providers Date of Admission: 11/10/22 21:41 Date of Discharge: November 12, 2022 Attending Provider at Admission: Adore Lawson MD Attending Provider at Discharge: Govind Gloria MD Primary Care Provider: FROYLAN Bae Diagnoses at Discharge Discharge Diagnosis (1) Hypertensive urgency: Status: Acute (2) Altered mental status: Status: Acute Qualifiers: Altered mental status type: unspecified Qualified Code(s): R41.82 - Altered mental status, unspecified (3) Encephalopathy, hypertensive: Status: Acute Reason for Visit Reason for Visit: ams Brief History: History as per HPI: Marv Keenan is a 47 year old male with history of hypertension anxiety seasonal allergies was brought in by the for for abnormal behavior and not feeling well.? As per the they had an argument this afternoon when he suddenly started leaning down had itching all over the body and had irrelevant speech.? On arrival in ER he complained of left lower leg weakness and was found to have altered mental status.? BP at that time was 254/120 he received 40 mg labetalol and 1 mg Ativan following which BP was 178/99.? Stroke code was initiated but on further evaluation it was found to be more psychogenic episode.? He had a negative chest x-ray CT head and EKG was within normal limits. On further questioning on the floor, patient was alert awake oriented x3 with minimal weakness in the left lower leg.? He was recently prescribed 4 different blood pressure medications by PCP but he was taking only p.o. chlorthalidone.? He denies any dizziness fever nausea vomiting chest pain abdominal pain or urinary complaints.? Did not have similar complaints in the past.? Blood pressure was still 196/120 but he is asymptomatic. Hospital Course Hospital Course Patient was admitted to the hospital for evaluation management of hypertensive urgency leading to hypertensive encephalopathy. On admission he was started on oral antihypertensive and given multiple doses of IV labetalol after which his blood pressure stabilized. Multiple antihypertensives were adjusted during hospitalization. He responded well to the treatment and blood pressure is better controlled. CT head and carotid Dopplers were checked. Echocardiogram was done consistent with a normal EF, grade 1 diastolic dysfunction with RVSP of 41.9 mmHg consistent with pulmonary hypertension. He has been discharged hemodynamically stable condition on oral Coreg 12.5 mg twice daily, chlorthalidone 25 mg daily, hydralazine 50 mg 3 times daily and lisinopril 20 mg daily. He is to check his blood pressure daily at home and maintain a blood pressure diary and follow-up with a primary care provider within next 2 weeks for further adjustment of antihypertensives. Physical Exam Narrative: General: No acute distress, AO x3 HEENT: PERRLA, pupils bilaterally equal and reactive Chest: Normal vesicular breath sounds, no added sounds, equal good air entry bilaterally CVS: S1-S2 regular, no murmurs, no tachycardia, no gallops, no rubs Abdomen: Soft, nontender, no organomegaly, bowel sounds present Neuro: No focal deficits, no facial deformity, AO x3, power 5/5 in all limbs Discharge Data Studies Completed and Pending Completed Studies During Hospitalization Category Date Time Status CT head thrombolytic [id number] Stat Cat Scan 11/10/22 19:48 Completed CV carotid duplex BI* [id number] Routine Ultrasound 11/11/22 09:30 Completed CV. echo complete* [id number] Routine Ultrasound 11/11/22 09:30 Completed Pending at discharge Category Date Time Status CA echo doppler complete Routine Exams 11/11/22 01:08 Stop Req Radiology Impressions Head CT 11/10/22 19:48 IMPRESSION: No acute intracranial abnormality. ASSESSMENT: ASPECTS ([place] Stroke Program Early CT Score) is 10. Carotid Doppler: CONCLUSIONS ?Right ICA stenosis <50%. ?Left ICA stenosis <50%. ?Intimal thickening in the common carotid arteries and internal ?carotid arteries bilaterally. ?Normal antegrade Doppler flow noted in the right vertebral ?artery. ?Normal antegrade Doppler flow noted in the left vertebral ?artery. ?Anup French MD ?(Electronically Signed) ?Final Date:? ? ? 11 November 2022 ? 15:46 Echocardiogram: CONCLUSIONS ?Normal left ventricular size, systolic function and wall ?thickness, with no regional wall motion abnormalities. Grade ?I/IV diastolic dysfunction (abnormal relaxation filling ?pattern), normal to mildly elevated filling pressures. Left ?ventricular ejection fraction is estimated at 55 %. ?Normal right ventricular size and systolic function. Mild ?pulmonary hypertension, RVSP 41.9 mmHg. ?There are no prior echocardiogram studies to compare. ?Dr. Rosendo Lewis MD ?(Electronically Signed) ?Final Date:? ? ? 11 November 2022 ? 13:11 Laboratory Results WBC 8.49 10^3/uL (3.29-11.43) 11/12/22 04:28 RBC 5.12 10^6/uL (3.85-5.65) 11/12/22 04:28 Hgb 15.60 g/dL (11.27-16.99) 11/12/22 04:28 Hct 45.3 % (37-53) 11/12/22 04:28 MCV 88.5 fl (82-101) 11/12/22 04:28 MCH 30.5 pg (27-33) 11/12/22 04:28 MCHC 34.4 g/dL (30-55) 11/12/22 04:28 RDW 12.9 % (12.1-15.1) 11/12/22 04:28 Plt Count 200 10^3/cmm (157-399) 11/12/22 04:28 MPV 9.5 fL (7.4-10.4) 11/12/22 04:28 Neut % (Auto) 55.3 % 11/12/22 04:28 Lymph % (Auto) 31.3 % 11/12/22 04:28 [place] % (Auto) 10.1 % 11/12/22 04:28 Eos % (Auto) 2.0 % 11/12/22 04:28 Baso % (Auto) 0.8 % 11/12/22 04:28 Neut # (Auto) 4.69 10^3/uL (1.8-7.7) 11/12/22 04:28 Lymph # (Auto) 2.7 10^3/uL (0.8-4.8) 11/12/22 04:28 [place] # (Auto) 0.9 10^3/uL (0.2-0.9) 11/12/22 04:28 Eos # (Auto) 0.2 10^3/uL (0.0-0.8) 11/12/22 04:28 Baso # (Auto) 0.1 10^3/uL (0.0-0.1) 11/12/22 04:28 Nucleated RBC % (auto) 0 % 11/12/22 04:28 Nucleated RBCs # 0.0 /100WBC 11/12/22 04:28 PT 13.60 SECONDS (12.1-14.9) 11/10/22 19:50 INR 1.01 (0.8-1.2) 11/10/22 19:50 APTT 29.4 SECONDS (23.9-36.7) 11/10/22 19:50 Sodium 140 mmol/L (136-145) 11/12/22 04:28 Potassium 3.3 mmol/L (3.5-5.1) L 11/12/22 04:28 Chloride 104 mmol/L (98-107) 11/12/22 04:28 Carbon Dioxide 25 mmol/L (22-29) 11/12/22 04:28 Anion Gap 14.3 (5-19) 11/12/22 04:28 BUN 21 mg/dL (6-20) H 11/12/22 04:28 Creatinine 1.3 mg/dL (0.7-1.2) H 11/12/22 04:28 GFR Calculation 59.2 mL/min (90-130) L 11/12/22 04:28 Glucose 90 mg/dL (65-115) 11/12/22 04:28 POC Glucose 89 mg/dL (70-110) 11/10/22 19:59 Estimat Average Glucose 91 11/12/22 04:28 Hemoglobin A1c 4.8 % (4.0-6.0) 11/12/22 04:28 Calculated Osmolality 293 mOsm/kg (285-295) 11/12/22 04:28 Calcium 8.9 mg/dL (8.5-10.5) 11/12/22 04:28 Magnesium 2.2 mg/dL (1.7-2.3) 11/12/22 04:28 Iron 90 ug/dL (59-158) 11/11/22 04:08 TIBC 243 mcg/dl 11/11/22 04:08 % Saturation 37.0 % (20-50) 11/11/22 04:08 Unsat Iron Binding 153 ug/dL (112-347) 11/11/22 04:08 Total Bilirubin 0.8 mg/dL (0.15-1.2) 11/12/22 04:28 AST 15 U/L (0-40) 11/12/22 04:28 ALT 23 U/L (0-41) 11/12/22 04:28 Alkaline Phosphatase 68 U/L (40-130) 11/12/22 04:28 NT-Pro-B Natriuret Pep 205 pg/mL (0-125) H 11/11/22 04:08 Total Protein 6.9 g/dL (6.6-8.7) 11/12/22 04:28 Albumin 4.0 g/dL (3.5-5.2) 11/12/22 04:28 Globulin 2.9 g/dL (1.3-4.6) 11/12/22 04:28 Triglycerides 165 mg/dL (0-150) H 11/12/22 04:28 Cholesterol 151 mg/dL (0-200) 11/12/22 04:28 LDL Cholesterol, Calc 89 mg/dL (50-129) 11/12/22 04:28 Total VLDL Cholesterol 33 mg/dL (0-30) H 11/12/22 04:28 HDL Cholesterol 29 mg/dL (60-100) L 11/12/22 04:28 Cholesterol/HDL Ratio 5.21 mg/dL (1.0-5.00) H 11/12/22 04:28 Vitamin B12 845 pg/mL (232-1245) 11/11/22 04:08 Folate < 20.0 ng/mL (4.5-32.2) 11/12/22 04:28 TSH 2.52 uIU/mL (0.27-4.20) 11/10/22 19:50 Urine Color Yellow (Yellow) 11/10/22 23:33 Urine Appearance Clear (CLEAR) 11/10/22 23:33 Urine pH 5 (5-7) 11/10/22 23:33 Ur Specific [place] 1.020 (1.005-1.030) 11/10/22 23:33 Urine Protein Neg (Negative) 11/10/22 23:33 Urine Glucose (UA) Norm (Normal) 11/10/22 23:33 Urine Ketones Negative (Negative) 11/10/22 23:33 Urine Blood 2+ (Negative) H 11/10/22 23:33 Urine Nitrate Negative (Negative) 11/10/22 23:33 Urine Bilirubin Neg (Negative) 11/10/22 23:33 Urine Urobilinogen Neg mg/dL (Negative) 11/10/22 23:33 Ur Leukocyte Esterase Negative (Negative) 11/10/22 23:33 Urine RBC 0-4 /hpf (0-2) H 11/10/22 23:33 Urine WBC None /hpf (0-5) 11/10/22 23:33 Ur Squamous Epith Cells None /hpf (0-5) 11/10/22 23:33 Amorphous Sediment Not Reportable 11/10/22 23:33 Urine Bacteria Trace /hpf (NONE) 11/10/22 23:33 Urine Mucus 1+ /hpf 11/10/22 23:33 Urine Opiates Screen Negative ng/mL (Negative) 11/10/22 23:33 Ur Barbiturates Screen Negative ng/mL (Negative) 11/10/22 23:33 Ur Phencyclidine Scrn Negative ng/mL (Negative) 11/10/22 23:33 Ur Amphetamines Screen Negative ng/mL (Negative) 11/10/22 23:33 U Benzodiazepines Scrn Positive ng/mL (Negative) H 11/10/22 23:33 Urine Cocaine Screen Negative ng/mL (Negative) 11/10/22 23:33 U Marijuana (THC) Screen Negative ng/mL (Negative) 11/10/22 23:33 Ethyl Alcohol Cancelled 11/11/22 04:08 Vitals Last Vital Signs Temp 98.1 F 11/12/22 11:36 Pulse 63 11/12/22 11:36 Resp 18 11/12/22 11:36 BP 168/98 11/12/22 11:36 Pulse Ox 96 11/12/22 11:36 O2 Del Method Room Air 11/12/22 11:36 Discharge Plan Discharge Patient Disposition: Home Condition: Stable Prescriptions: New lisinopril 20 mg Tablet 20 mg PO DAILY 30 Days Qty: 30 0RF hydralazine 50 mg Tablet 50 mg PO TID 30 Days Qty: 90 0RF Coreg 12.5 mg tablet 12.5 mg PO Q12H Qty: 60 0RF Rx Instructions: must administer with a meal/food Continued albuterol sulfate 90 mcg/actuation HFA aerosol inhaler 2 puff inhalation Q6H PRN (Reason: shortness of breath or wheezing) Qty: 8.5 0RF citalopram [Celexa] 40 mg tablet 40 mg PO DAILY Qty: 90 1RF rosuvastatin 10 mg tablet 10 mg PO DAILY Qty: 30 0RF chlorthalidone 25 mg Tablet 25 mg PO DAILY vitamin [id number] acid 0.5-1 mg Tablet 1 tab PO DAILY Discontinued metoprolol tartrate 50 mg tablet 50 mg PO BID Qty: 60 0RF Discharge Orders: Discharge Order (Routine); Ordered 11/12/22 Ordered By: Govind Gloria Referrals: Rosy Martinez, [employer] [Primary Care Provider] - (We have notified your physician's clinic of the need for a follow-up appointment to be scheduled. If you have not heard from them within the next 2 business days, please call them directly. You may also reach out to our people manager at [phone] and she can assist you.) Discharge Diet: Cardiac Discharge Activity: Resume usual activity and Increase activity as tolerated Patient Instructions: Lisinopril (By mouth), Hydralazine (By mouth), Carvedilol (By mouth), Hyponatremia (ED), Opioid Safety Activity Restrictions/Additional Instructions: Coreg 12.5 mg twice daily, chlorthalidone 25 mg daily, hydralazine 50 mg 3 times daily and lisinopril 20 mg daily. He is to check his blood pressure daily at home and maintain a blood pressure diary and follow-up with a primary care provider within next 2 weeks for further adjustment of antihypertensives. Discharge Attestations Time Spent in Discharge Care*: greater than 30 min Specific Discharge Activities: educating patient, discussing with pcp/other providers, discussing with nurse case management/social workers/dc planners, documenting/other paperwork and evaluating patient/reviewing data Status at Discharge: Cognitive status at discharge: cognitively intact , Behavioral status at discharge: cooperative , Functional status at discharge: independent ambulation , Overall status at discharge: patient is back to baseline Quality Metrics Clinical Quality Measures [ No reported AMI, CVA or VTE this stay] Coding Level of Care Code 74847 Total time (in minutes) for Discharge: 50 Diagnoses Hypertensive urgency I16.0 Altered mental status R41.82 Altered mental status type: unspecified Encephalopathy, hypertensive I67.4
--- NOTE | 2022-11-12 13:06 | PM.SAN ---
Stroke Alert Activation ED Arrival Date: 11/10/22 ED Arrival Time: 19:19 ED Physican at Bedside: 19:27 Last Known Normal/at Baseline: 1-2 hours ago (Initial information later found to be inaccurate) Other Last Known Well Infomation: I was called stat for stroke alert after this 47-year-old man came to the hospital by private vehicle from his . I called immediately and spoke with the incoming freight clerk at the desk who informed me that Dr. Laen was in the room with the patient. Not wanting to take Dr. Romo away from evaluating the patient I asked to speak with the triage nurse. Asim Harvey informed me that the patient presented with altered mental status, not making sense and left-sided weakness. Asim informed me that the patient was having symptoms for the past hour and that his blood pressure was quite high. He was concerned that the patient's symptoms were a result of his hypertension. I made a decision to come directly to the emergency department, where I encountered Dr. Lane in the patient's room. We went back and reviewed the CAT scan of the head while Dr. Lane reviewed the history with me. The patient's blood pressure was extremely high and (250/135 approximately) Dr. Lane had already given an order for 20 mg of labetalol IV. We looked at the CAT scan and reviewed the patient's exam findings of left-sided weakness and mild somewhat nonspecific confusion. Dr. Lane and I returned to the patient's room to find that the nurse was still in the process of pushing labetalol 20 mg IV. I performed an NIH stroke scale while she completed that procedure and then I asked the patient to stand up. The remarkable findings on exam include the fact that the patient was alert and able to converse with me. He related that his symptoms started after he had a spat with his after getting home from work. That would have been 3 and half hours prior to the current moment of exam. He related that he had had similar symptoms several weeks ago. He was aware that he suffered from hypertension but had not always been taking his medications. He was able to stand with standby assistance. He was able to get himself back onto the stretcher and was noted to lift his left leg onto the stretcher by himself. Immediately following that I repeated asking the patient to lift his left leg from the stretcher and he could not do it, suggesting a functional finding. The patient's blood pressure remained severely elevated even after 20 mg of labetalol. He was still over 200 and diastolic was over 130. Dr. Lane and I shared a timeout. We agreed that the patient's stroke scale score was low, that he had only left leg weakness that improved with action, suggesting a functional finding, and that even including that finding his score was only 3. The fact that his blood pressure remains severely elevated and that it had already been 4 hours from last known well we agreed that tPA would not be a good idea. This I related to the patient and his and took time to answer questions. Stroke Alert Activation Time: 19:42 Stroke MD @ Bedside Time: 19:43 NIH Stroke Scale Time: 19:55 NIH stroke score NIHSS: Level Of Consciousness - 1a: 0 Level Of Consciousness Questions - 1b: Both Correct Level Of Consciousness Commands - 1c: Both Correct Best Gaze - 2: Normal Visual Ray - 3: No Visual Loss Facial Palsy - 4: Normal Motor Arm Right - 5: No Drift Motor Arm Left - 5: No Drift Motor Leg Right - 6: No Drift Motor Leg Left - 6: Effort Against [place] Limb Ataxia - 7: Absent Sensory - 8: Mild To Moderate Loss Best Language - 9: No Aphasia Dysarthia - 10: Normal Extinction And Inattention - 11: 0 Score: Total Score: 3 Stroke Alert Data/Treatment Time to CT of Head: 19:52 CT Results Time: 20:12 CT Impression: normal Stroke Risk Factors: hypertension and depression tPA Contraindication: tPA Contraindication: Treatment not indcated tPA Admin Prior to Arrival: No Patient & Family Educated on: Risk Factors, Treament Plan and tPA Risks/Benefits Other Patient & Family Education: Plan for hospital admission Standardized Stroke Orders Used: Yes Critical Care Time Critical Care Time: 30 - 74 mins A&P Assessment and plan (1) Altered mental status: This patient presented with somewhat nonspecific alteration of mental status that had largely cleared by the time I saw him and he was able to speak lucidly about the onset of his symptoms after he had an argument with his . He had severe hypertension out of control. His said that they have been having multiple symptoms of different types and had been seeing multiple physicians in an attempt to make a diagnosis. I took time to address the patient's exam multiple times to make sure that he should not receive tPA and any and we all agreed that tPA was not indicated. Qualifiers: Altered mental status type: unspecified Qualified Code(s): R41.82 - Altered mental status, unspecified (2) Hypertensive urgency: (3) Depression: Qualifiers: Depression Type: dysthymia Qualified Code(s): F34.1 - Dysthymic disorder (4) Encephalopathy, hypertensive: Coding Level of Care Code Acute Code for [facility] Fwd Diagnoses Altered mental status R41.82 Altered mental status type: unspecified Hypertensive urgency I16.0 Depression F34.1 Depression Type: dysthymia Encephalopathy, hypertensive I67.4
== END 2022-11-12 13:08 | disposition home or self-care (01) | DRG 305 ==
LOC: ER 20:26 → MEDSURG 11-11 00:43
PROVIDERS: Admitting Provider Internal Medicine; Emergency Provider Emergency Medicine; PCP Registered Nurse; Visit Provider Student in an Organized Health Care Education/Training Program
DX: I16.0 Hypertensive urgency (principal); I67.4 Hypertensive encephalopathy; I10 Essential (primary) hypertension; Z91.148 Patient's other noncompliance with medication regimen for other reason; F34.1 Dysthymic disorder; G47.30 Sleep apnea, unspecified
CPT/HCPCS: 36415; 36416; 70450; 80053; 80061; 80306; 80307; 81001; 82607; 82746; 82962; 83036; 83540; 83550; 83735; 83880; 84443; 85025; 85610; 85730; 93005; 93306; 93880; 96372; J0360; J1644; J2060; J3480; J3490

== ENCOUNTER 2023-08-15 10:00 | Outpatient (CLI) | payer MEDICAID, SELFPAY | END 2023-08-15 10:01 | disposition home or self-care (01) | LOC: SLEEP 11-08 10:12 | PROVIDERS: PCP Nurse Practitioner; Visit Provider Nurse Practitioner | DX: I10 Essential (primary) hypertension (principal); Z12.5 Encounter for screening for malignant neoplasm of prostate; F34.1 Dysthymic disorder | CPT/HCPCS: 80053; 80061; 84443; 85025; G0103 ==

== ENCOUNTER → 2023-08-29 14:20 | Outpatient (BNVA) | payer MEDICAID, SELFPAY | PROVIDERS: PCP Nurse Practitioner; Visit Provider Nurse Practitioner | DX: I10 Essential (primary) hypertension (principal); E87.6 Hypokalemia | CPT/HCPCS: 80048; 83036 ==

== ENCOUNTER 2023-11-08 15:49 | Outpatient (CLI) | payer MEDICAID, SELFPAY | END 2023-11-08 15:50 | disposition home or self-care (01) | LOC: SLEEP 15:51 | PROVIDERS: PCP Nurse Practitioner; Visit Provider Nurse Practitioner | DX: G47.33 Obstructive sleep apnea (adult) (pediatric) (principal); G47.36 Sleep related hypoventilation in conditions classified elsewhere; I10 Essential (primary) hypertension | CPT/HCPCS: G0399 ==

== ENCOUNTER → 2024-02-06 13:28 | Outpatient (BNVA) | payer MEDICAID, SELFPAY | PROVIDERS: PCP Nurse Practitioner; Visit Provider Nurse Practitioner | DX: I10 Essential (primary) hypertension (principal) | CPT/HCPCS: 80053; 84443; 85025; G0103 ==

== ENCOUNTER → 2024-12-09 15:07 | Outpatient (BNVA) | payer MEDICAID, SELFPAY | PROVIDERS: PCP Nurse Practitioner; Visit Provider Nurse Practitioner | DX: M19.072 Primary osteoarthritis, left ankle and foot (principal) | CPT/HCPCS: 73630 ==

== ENCOUNTER → 2024-12-19 09:29 | Outpatient (BNVA) | payer MEDICAID, SELFPAY | PROVIDERS: PCP Nurse Practitioner; Visit Provider Nurse Practitioner | DX: Z12.5 Encounter for screening for malignant neoplasm of prostate (principal); I10 Essential (primary) hypertension | CPT/HCPCS: 80053; 85025; G0103 ==

== ENCOUNTER 2024-12-23 13:53 | Inpatient (IN) | payer MEDICAID, SELFPAY ==
[2024-12-23] VITALS (42 sets, daily range): BP systolic 91–230; BP diastolic 55–142; PULSE 65–93; RESP 12–31; TEMP 36.8–37.1; O2SAT 88–98; BMI 41.3; BMI 46.3
--- NOTE | 2024-12-23 14:12 | W.ED.GENADLT ---
HPI - General Adult General: Chief complaint: General Medical Stated complaint: dr rob, high bp Time Seen by Provider: 12/23/24 14:05 History of Present Illness: 49-year-old man with a history of hypertension, obesity, and depression who presents emergency room with hypertension. He was in podiatry clinic and they checked his blood pressure and it was elevated. On presentation here he was well over 200 systolic and 140 diastolic. He says he has a bit of a pressure behind his eyes but no headache. No altered mental status. No focal motor deficits. No chest pain. No nausea or vomiting. No abdominal pain. He says his doctor has been working on trying to figure out how to get his blood pressure down. He is on amlodipine 10. Chlorthalidone 25. And telmisartan 80. Related Data Home Medications ?Medication ?Instructions ?Recorded ?Confirmed vitamin B12 0.5 mg-folic acid 1 mg 1 tab PO DAILY 11/11/22 12/23/24 tablet Previous Rx's ?Medication ?Instructions ?Recorded miscellaneous medical supply 1 ea miscellaneous DAILY #1 ea 04/23/24 telmisartan 80 mg tablet 80 mg PO DAILY #30 tabs 09/04/24 amlodipine 10 mg tablet See Rx Instructions .Route 09/09/24 .COMPLEX #30 tabs citalopram 40 mg tablet (Celexa) 40 mg PO DAILY #90 tabs 12/09/24 naproxen 375 mg tablet 375 mg PO BID #30 tabs 12/09/24 amoxicillin 875 mg-potassium 1 tab PO BID #20 tabs 12/19/24 clavulanate 125 mg tablet chlorthalidone 25 mg tablet 25 mg PO DAILY #30 tabs 12/19/24 prednisone 20 mg tablet 20 mg PO DAILY #7 tabs 12/19/24 clonidine HCl 0.1 mg tablet 0.1 mg PO DAILY PRN hypertension 12/23/24 #20 tabs Allergies Allergy/AdvReac Type Severity Reaction Status Date / Time No Known Allergies Allergy Verified 12/23/24 13:11 Review of Systems Narrative: Constitutional symptoms: Negative except as documented in HPI. Skin symptoms: Negative except as documented in HPI. Eye symptoms: Negative except as documented in HPI. ENMT symptoms: Negative except as documented in HPI. Respiratory symptoms: Negative except as documented in HPI. Cardiovascular symptoms: Negative except as documented in HPI. Gastrointestinal symptoms: Negative except as documented in HPI. Genitourinary symptoms: Negative except as documented in HPI. Musculoskeletal symptoms: Negative except as documented in HPI. Neurologic symptoms: Negative except as documented in HPI. Psychiatric symptoms: Negative except as documented in HPI. Endocrine symptoms: Negative except as documented in HPI. [facility] ED PFSH: Medical History (Updated 12/23/24 @ 15:01 by Kathi Zavala MD) Depression Essential hypertension Social History Smoking and tobacco/nicotine status: former use of tobacco/nicotine Second hand smoke exposure: No Alcohol intake: never Substance/Drug Use: never Physical Exam Narrative: EXAM NARRATIVE: General: Alert, no acute distress. Skin: Warm, dry. Head: Normocephalic, atraumatic. Neck: Supple, trachea midline. Eye: Extraocular movements are intact. Ears, nose, mouth and throat: mucosa moist. Cardiovascular: Regular, Normal peripheral perfusion. Respiratory: Lungs are clear to auscultation, respirations are non-labored, breath sounds are equal, Symmetrical chest wall expansion. Gastrointestinal: Soft, Nontender, Non distended Musculoskeletal: Normal ROM, no deformity. Neurological: Alert and oriented, No focal neurological deficit observed. Psychiatric: Cooperative, appropriate mood & affect. Course Vital Signs: Vital signs: Vital Signs Temperature 98.8 F 12/23/24 13:58 Pulse Rate 79 12/23/24 13:58 Respiratory Rate 17 12/23/24 13:58 Blood Pressure 205/109 12/23/24 14:27 Pulse Oximetry 98 12/23/24 13:58 Oxygen Delivery Me thod Room Air 12/23/24 13:58 [facility] - General Adult Medical Decision Making Medical decision making: Differential diagnosis including but not limited to and based on the above HPI, review of systems and physical exam: Patient presents with hypertension: Essential hypertension. Stroke. acute coronary syndrome. kidney failure. congestive heart failure. anxiety. Orders placed to evaluate differential diagnosis based on the above differential, HPI and physical exam EKG: Time 1419. Rate 74. Normal sinus rhythm, LVH, nonspecific ST changes, no ectopy, normal [place] & QRS intervals, This was reviewed and interpreted by myself the ER physician at 1425. Lab Review: Laboratory results were reviewed and interpreted by myself the emergency room physician. No leukocytosis. No anemia. No renal failure. Initial troponin is just 12. I reviewed the patient's medical record. History of hypertension and admission for hypertensive encephalopathy in the past. Reexamination: Patient remained stable. No increased work of breathing. No altered mental status. No focal motor deficits. Consultation: I spoke with Dr. Jennings who is on-call for the hospitalist service who agrees to admission. Assessment and plan: Accelerated hypertension ?IV clonidine with brief improvement and now is back up to 210/150. Nicardipine drip being initiated -I discussed the patient with the hospitalist on-call who is admitting the patient. - Discussed findings and plan with patient. Answered any questions. - All laboratory values were reviewed and interpreted personally by myself, the ER physician - Evaluation and treatment of this problem were appropriate in the emergency setting Lab Data 12/23/24 14:10 12/23/24 15:03 Laboratory Results WBC 8.80 10^3/uL (3.29-11.43) 12/23/24 14:10 RBC 5.38 10^6/uL (3.85-5.65) 12/23/24 14:10 Hgb 15.90 g/dL (11.27-16.99) 12/23/24 14:10 Hct 44.9 % (37-53) 12/23/24 14:10 MCV 83.5 fl (82-101) 12/23/24 14:10 MCH 29.6 pg (27-33) 12/23/24 14:10 MCHC 35.4 g/dL (30-55) 12/23/24 14:10 RDW 12.6 % (12.1-15.1) 12/23/24 14:10 Plt Count 213 10^3/cmm (157-399) 12/23/24 14:10 MPV 9.6 fL (7.4-10.4) 12/23/24 14:10 Neut % (Auto) 66.0 % 12/23/24 14:10 Lymph % (Auto) 21.0 % 12/23/24 14:10 [place] % (Auto) 9.8 % 12/23/24 14:10 Eos % (Auto) 1.3 % 12/23/24 14:10 Baso % (Auto) 1.0 % 12/23/24 14:10 Neut # (Auto) 5.81 10^3/uL (1.8-7.7) 12/23/24 14:10 Lymph # (Auto) 1.9 10^3/uL (0.8-4.8) 12/23/24 14:10 [place]assen # (Auto) 0.9 10^3/uL (0.2-0.9) 12/23/24 14:10 Eos # (Auto) 0.1 10^3/uL (0.0-0.8) 12/23/24 14:10 Baso # (Auto) 0.1 10^3/uL (0.0-0.1) 12/23/24 14:10 Nucleated RBC % (auto) 0 % 12/23/24 14:10 Nucleated RBCs # 0.0 /100WBC 12/23/24 14:10 Sodium 135 mmol/L (136-145) L 12/23/24 15:03 Potassium 3.7 mmol/L (3.5-5.1) 12/23/24 15:03 Chloride 100 mmol/L (98-107) 12/23/24 15:03 Carbon Dioxide 23 mmol/L (22-29) 12/23/24 15:03 Anion Gap 15.7 (5-19) 12/23/24 15:03 BUN 14 mg/dL (6-20) 12/23/24 15:03 Creatinine 0.9 mg/dL (0.7-1.2) 12/23/24 15:03 GFR Calculation 89.7 mL/min (90-130) L 12/23/24 15:03 Glucose 96 mg/dL (65-115) 12/23/24 15:03 Calculated Osmolality 280 mOsm/kg (285-295) L 12/23/24 15:03 Calcium 9.0 mg/dL (8.5-10.5) 12/23/24 15:03 Troponin T Baseline 12 ng/L (0-15) 12/23/24 14:10 All radiology interpretation(s) finalized by discharge Discharge Plan Discharge Patient Disposition: Admitted As Inpatient Clinical Impression: Accelerated hypertension Condition: Stable Discharge Diet: Usual diet Discharge Activity: Increase activity as tolerated Coding Level of Care Code ED Provider Relations Consultant for Antoine Clark
--- NOTE | 2024-12-23 14:19 | ECG_ITS ---
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 Measurements Intervals [place] Rate: 74 P: 39 WV: 184 QRS: -2 QRSD: 107 T: 44 QT: 406 QTc: 452 Interpretive Statements SINUS RHYTHM MODERATE VOLTAGE CRITERIA FOR LVH, CONSIDER NORMAL VARIANT [MEETS CRITERIA IN ONE OF: R(aVL), S(V1), R(V5), R(V5/V6)+S(V1)] NONSPECIFIC T-WAVE ABNORMALITY Compared to ECG 11/10/2022 20:18:44 T-wave abnormality now present ST (T wave) deviation no longer present Electronically Signed On 12-24-2024 19:19:15 CDT by Mary Alice Oakes M.D. [email or web address] [id number]
[2024-12-23 14:25] LABS: Hematocrit 44.9 % (37-53); Hemoglobin 15.90 g/dL (11.27-16.99); Mean Corpuscular HGB Conc 35.4 g/dL (30-55); Mean Corpuscular Hemoglobin 29.6 pg (27-33); Mean Corpuscular Volume 83.5 fl (82-101); Nucleated Red Blood Cells % 0 %; Platelet Count 213 10^3/cmm (157-399); Red Blood Count 5.38 10^6/uL (3.85-5.65); White Blood Count 8.80 10^3/uL (3.29-11.43)
[2024-12-23 14:46] LABS: Troponin(5th) Baseline 12 ng/L (0-15)
[2024-12-23 15:32] LABS: Anion Gap 15.7 (5-19); Blood Urea Nitrogen 14 mg/dL (6-20); Calcium 9.0 mg/dL (8.5-10.5); Carbon Dioxide 23 mmol/L (22-29); Chloride 100 mmol/L (98-107); Glucose 96 mg/dL (65-115); Osmolality Calculated 280 mOsm/kg (285-295); Potassium 3.7 mmol/L (3.5-5.1); Sodium 135 mmol/L (136-145)
[2024-12-23] MEDS: nicardipine 20 MG/200 ML PREMIX 50 MG IV ×2 (16:06→20:10)
--- NOTE | 2024-12-23 16:19 | ECG_ITS ---
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 Measurements Intervals [place] Rate: 83 P: 32 [place]: 188 QRS: -5 QRSD: 122 T: 36 QT: 402 QTc: 474 Interpretive Statements SINUS RHYTHM MODERATE INTRAVENTRICULAR CONDUCTION DELAY [110+ ms QRS DURATION] MODERATE VOLTAGE CRITERIA FOR LVH, CONSIDER NORMAL VARIANT [MEETS CRITERIA IN ONE OF: R(aVL), S(V1), R(V5), R(V5/V6)+S(V1)] NONSPECIFIC T-WAVE ABNORMALITY Compared to ECG 12/23/2024 14:19:55 Intraventricular conduction delay now present T-wave abnormality still present Electronically Signed On 12-24-2024 19:39:54 CDT by Mary Alice Oakes M.D. [email or web address] [id number]
--- NOTE | 2024-12-23 16:50 | PM.HP ---
Providers/Chief Complaint Primary Care Provider: FROYLAN Evans Chief Complaint: dr rob, high bp History of Present Illness Marv Keenan is a 49 year old male Review of Systems Const: Denies: fever(s) or chills Eyes: Denies: change in vision Card: Denies: chest pain Resp: Denies: dyspnea GI: Denies: abdominal pain : Denies: flank pain Neuro: Denies: headache(s), numbness in extremities, weakness in extremities, dizziness, vertigo or Slurred speech present Medications/Allergies Home Medications ?Medication ?Instructions ?Recorded ?Confirmed ?Last Taken ?Type vitamin B12 0.5 mg-folic acid 1 mg 1 tab PO DAILY 11/11/22 12/23/24 12/23/24 History tablet telmisartan 80 mg tablet 80 mg PO DAILY #30 tabs 09/04/24 12/23/24 12/23/24 09:00 Rx amlodipine 10 mg tablet See Rx Instructions .Route 09/09/24 12/23/24 12/23/24 08:00 Rx .COMPLEX #30 tabs citalopram 40 mg tablet (Celexa) 40 mg PO DAILY #90 tabs 12/09/24 12/23/24 12/23/24 09:00 Rx naproxen 375 mg tablet 375 mg PO BID #30 tabs 12/09/24 12/23/24 12/23/24 10:00 Rx amoxicillin 875 mg-potassium 1 tab PO BID #20 tabs 12/19/24 12/23/24 12/23/24 09:00 Rx clavulanate 125 mg tablet chlorthalidone 25 mg tablet 25 mg PO DAILY #30 tabs 12/19/24 12/23/24 12/23/24 08:00 Rx prednisone 20 mg tablet 20 mg PO DAILY #7 tabs 12/19/24 12/23/24 12/23/24 08:00 Rx clonidine HCl 0.1 mg tablet 0.1 mg PO DAILY PRN hypertension 12/23/24 Unknown Rx #20 tabs Allergies Allergy/AdvReac Type Severity Reaction Status Date / Time No Known Allergies Allergy Verified 12/23/24 13:11 PFSH Acute PFSH: Medical History Depression Essential hypertension Social History Smoking and tobacco/nicotine status: former use of tobacco/nicotine Second hand smoke exposure: No Alcohol intake: never Substance/Drug Use: never Vitals/I&O/Wt Last Vital Signs Temp 98.8 F 12/23/24 13:58 Pulse 79 12/23/24 16:48 Resp 17 12/23/24 13:58 BP 184/130 12/23/24 16:48 Pulse Ox 95 12/23/24 16:48 O2 Del Method Room Air 12/23/24 16:48 Weight last 48 hrs Weight 119.748 kg Physical Exam Const: COMMON NORMALS: no acute distress and patient oriented x3 Eye: COMMON NORMALS: Equal, round and reactive pupils present and EOMs intact bilaterally Resp: COMMON NORMALS: normal respiratory effort, No retractions, No use of accessory muscles and clear to auscultation bilaterally AUSCULTATION: clear to auscultation bilaterally Cardio: COMMON NORMALS: regular rate, regular rhythm, S1 normal heart sound present and S2 normal heart sound present RATE: regular rate RHYTHM: regular rhythm HEART SOUNDS: S1 normal heart sound present and S2 normal heart sound present GI: COMMON NORMALS: Normal to inspection, nondistended, normoactive bowel sounds present, Soft to palpation and non-tender Extremity: COMMON NORMALS: no pedal edema Neuro: COMMON NORMALS: patient oriented x3, CN's II-XII intact bilaterally and moves all extremities Psych: COMMON NORMALS: mental status grossly normal Data 12/23/24 14:10 12/23/24 15:03 A&P Assessment and plan 1. Hypertensive urgency: - Currently on a Cardene drip - Goal reduce systolic blood pressure less than 160, diastolic less than 100 - Transition to p.o. blood pressure medications -Telemetry monitoring, neurochecks - Full code - Lovenox for DVT prophylaxis PDMP PDMP Reviewed: Not Reviewed Attestations Medical Necessity Statement*: Patient requires hospitalization for hypertensive emergency, inpatient, greater than 2 nights Diagnoses Hypertensive urgency I16.0
[2024-12-23 17:30] LABS: Troponin 5 2HR 10.02 ng/L (0-15)
[2024-12-23 17:32] LABS: Troponin 5 2HR Delta -1.98 ABS# (0-10)
[2024-12-23 19:32] LABS: Cholesterol 162 mg/dL (0-200); HDL Cholesterol 33 mg/dL (60-100); Thyroid Stimulating Hormone 1.19 uIU/mL (0.27-4.20); Triglycerides 177 mg/dL (0-150)
[2024-12-23 19:39] LABS: Estmated Average Glucose 108; Hemoglobin A1C 5.4 % (4.0-6.0)
--- NOTE | 2024-12-23 20:04 | ECG_ITS ---
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 Measurements Intervals [place] Rate: 58 P: 13 MN: 158 QRS: 25 QRSD: 111 T: -11 QT: 430 QTc: 423 Interpretive Statements SINUS BRADYCARDIA MODERATE INTRAVENTRICULAR CONDUCTION DELAY [110+ ms QRS DURATION] ST DEVIATION AND MODERATE T-WAVE ABNORMALITY, CONSIDER LATERAL ISCHEMIA [-0.1+ mV T-WAVE IN I/aVL/V5/V6] Compared to ECG 12/23/2024 16:19:57 Possible ischemia now present Sinus rhythm no longer present T-wave abnormality still present Electronically Signed On 12-24-2024 19:38:58 CDT by Mary Alice Oakes M.D. [email or web address] [id number]
[2024-12-23] MEDS: pantoprazole 40 mg SDV IVP (20:09)
[2024-12-23 21:15] LABS: Troponin 5 6HR 8.18 ng/L (0-15); Troponin 5 6HR Delta -3.82 ng/L (0-12)
[2024-12-23 21:23] LABS: Glucose Urine UA Negative (Normal); Nitrate Urine Negative (Negative); Specific Gravity, Urine 1.013 (1.005-1.030)
[2024-12-23 21:52] LABS: Add Urine Microscopic? YES; UA Manual Slide Review YES; UA Slide Review UA Slide Review Perf
[2024-12-24] VITALS (60 sets, daily range): BP systolic 111–172; BP diastolic 77–115; PULSE 59–104; RESP 11–21; TEMP 36.1–37; O2SAT 91–96
[2024-12-24] MEDS: nicardipine 20 MG/200 ML PREMIX 30 MG IV ×2 (01:25→06:39)
[2024-12-24] MEDS: CITALOPRAM 40 MG TABLET PO (04:59)
[2024-12-24] MEDS: LOSARTAN 100 MG TABLET PO (04:59)
[2024-12-24 05:21] LABS: Hematocrit 42.5 % (37-53); Hemoglobin 15.00 g/dL (11.27-16.99); Mean Corpuscular HGB Conc 35.3 g/dL (30-55); Mean Corpuscular Hemoglobin 29.7 pg (27-33); Mean Corpuscular Volume 84.2 fl (82-101); Nucleated Red Blood Cells % 0 %; Platelet Count 229 10^3/cmm (157-399); Red Blood Count 5.05 10^6/uL (3.85-5.65); White Blood Count 10.04 10^3/uL (3.29-11.43)
[2024-12-24 05:44] LABS: Alanine Aminotransferase 33 U/L (0-41); Albumin Level 4.2 g/dL (3.5-5.2); Alkaline Phosphatase 87 U/L (40-130); Anion Gap 14.7 (5-19); Aspartate Amino Transferase 17 U/L (0-40); Blood Urea Nitrogen 16 mg/dL (6-20); Calcium 8.9 mg/dL (8.5-10.5); Carbon Dioxide 26 mmol/L (22-29); Chloride 103 mmol/L (98-107); Globulin 2.8 g/dL (1.3-4.6); Glucose 89 mg/dL (65-115); Osmolality Calculated 291 mOsm/kg (285-295); Potassium 3.7 mmol/L (3.5-5.1); Sodium 140 mmol/L (136-145); Total Protein 7.0 g/dL (6.6-8.7)
--- NOTE | 2024-12-24 08:44 | USR_ITS ---
PROCEDURE INFORMATION: Exam: US Duplex Artery and Vein of the Abdominal and/or Reproductive Organs, Complete Exam date and time: 12/24/2024 4:03 PM Age: 49 years old Clinical indication: Abdominal or pelvic symptoms: HTN; Additional info: Renal artery stenosi eval, TECHNIQUE: Imaging protocol: Real-time duplex ultrasound scan of the arterial and venous flow of the abdominal and/or reproductive organs with B-mode, color Doppler flow and spectral waveform analysis with image documentation. Exam focused on the region of clinical concern. Complete exam. Duplex exam was performed to evaluate for vascular conditions. COMPARISON: No relevant prior studies available. FINDINGS: Right kidney: Small cyst in the right kidney. Other findings: The renal arteries demonstrate normal flow velocity. Normal RI. US/CV renal doppler [id number] IMPRESSION: No evidence of renal arterial hypertension.
--- NOTE | 2024-12-24 08:44 | USCV_ITS ---
Marv Keenan Age: 49 Gender: M : 1975 Exam Date: 12/24/2024 10:25 Ordering Phys: Adam Jennings MD Technologist: DIDIER [place] [facility] [place]: HTN BP: 142 / 92 HR: 63 Rhythm: Sinus Technical Quality: Adequate MEASUREMENTS (Male / Female) Normal Values 2D ECHO LV Diastolic Diameter PLAX 5.5 cm 4.2 - 5.9 / 3.9 - 5.3 cm IVS Diastolic Thickness 1.4 cm 0.6 - 1.0 / 0.6 - 0.9 cm IVS Systolic Thickness 1.5 cm LVPW Diastolic Thickness 1.7 cm 0.6 - 1.0 / 0.6 - 0.9 cm LVPW Systolic Thickness 1.8 cm LVOT Diameter 2.0 cm LV Ejection Fraction 2D Teich 33.8 % LV Ejection Fraction MOD 4C 44.0 % LV Ejection Fraction MOD 2C 52.6 % LV Ejection Fraction 2C AL 55.2 % LA Diameter 3.8 cm RA Systolic Volume 4C AL 73.9 ml RA Systolic Volume 4C MOD 69.3 ml LA Sys Volume AL 68.9 cm cubed LA Sys Volume Index AL 26.7 cm cubed/m squared Aorta at Sinotubular Diameter 3.0 cm M-MODE LA Ao Ratio MM 1.2 AV Cusp Separation MM 2.3 cm DOPPLER AV Peak Velocity 123.0 cm/s LVOT Peak Velocity 122.0 cm/s AV Area Cont Eq vti 3.6 cm squared AV Area Cont Eq pk 3.3 cm squared MV Peak Velocity 78.0 cm/s MV Area PHT 3.6 cm squared Mitral E to A Ratio 0.9 TR Peak Velocity 98.0 cm/s TR Peak Gradient 3.8 mmHg TV Peak E Velocity 59.0 cm/s PV Peak Velocity 98.0 cm/s FINDINGS Left Ventricle Mild diffuse hypokinesis of left ventricular ejection fraction of 45 to 50%. Mildly dilated left ventricle.mild left ventricular hypertrophy. Grade I/IV diastolic dysfunction (abnormal relaxation filling pattern), normal to mildly elevated filling pressures. Right Ventricle Normal right ventricular size and systolic function. Right Atrium Normal right atrial size. Left Atrium Normal left atrial size. IA Septum Appears to be intact Mitral Valve No gross abnormalities noted Aortic Valve Thickened aortic valve. Tricuspid Valve No gross abnormalities Pulmonic Valve Pulmonic valve not well visualized. Pericardium No pericardial effusion. Aorta Normal aortic annulus size. IVC Inferior vena cava not visualized. CONCLUSIONS Mild diffuse hypokinesis of left ventricular ejection fraction of 45 to 50%. Mildly dilated left ventricle.mild left ventricular hypertrophy. Grade I/IV diastolic dysfunction (abnormal relaxation filling pattern), normal to mildly elevated filling pressures. Thickened aortic valve. No significant valvular abnormalities. There is no pericardial effusion. Compared to the study from 11/11/2022, there is slight decline in the LV ejection fraction from 55% to 45 -50% Dr Mary Alice Oakes MD FAC (Electronically Signed) Final Date: 24 December 2024 13:46 S
--- NOTE | 2024-12-24 13:55 | PM.DCS ---
Discharge Providers Date of Admission: 12/23/24 17:43 Date of Discharge: December 24, 2024 Attending Provider at Admission: Adam Jennings MD Attending Provider at Discharge: Adam Jennings MD Primary Care Provider: FROYLAN Evans Diagnoses at Discharge Discharge Diagnosis 1. Hypertensive urgency: Reason for Visit Reason for Visit: dr rob, high bp Hospital Course Hospital Course This is a 49-year-old male with a past medical history of hypertension, recent history of sinus infection on prednisone who presents to [facility] due to elevated blood pressure. Patient was in the podiatry clinic when he was told to come to the emergency room due to elevated blood pressure no chest pain, no palpitations, lightheadedness, dizziness, no strokelike symptoms, no lightheadedness, no dizziness, denies a cardiovascular history, Patient was admitted to [facility] for hypertensive urgency - Received Cardene drip - Transition off Cardene drip to p.o. blood pressure medication - Placed on hydralazine, clonidine, Norvasc - Cardiac echo pending - Carotid artery ultrasound pending -Relatively asymptomatic - Patient will require further testing for secondary causes of hypertension, follow-up with primary care Physical Exam Const: COMMON NORMALS: no acute distress and patient oriented x3 Resp: COMMON NORMALS: normal respiratory effort, No retractions, No use of accessory muscles and clear to auscultation bilaterally AUSCULTATION: clear to auscultation bilaterally Cardio: COMMON NORMALS: regular rate, regular rhythm, S1 normal heart sound present and S2 normal heart sound present RATE: regular rate RHYTHM: regular rhythm HEART SOUNDS: S1 normal heart sound present and S2 normal heart sound present GI: COMMON NORMALS: Normal to inspection, nondistended, normoactive bowel sounds present and non-tender Extremity: COMMON NORMALS: no calf tenderness and no pedal edema Neuro: COMMON NORMALS: patient oriented x3, CN's II-XII intact bilaterally and moves all extremities Psych: COMMON NORMALS: mental status grossly normal Discharge Data Studies Completed and Pending Completed Studies During Hospitalization Category Date Time Status CV. echo complete* [id number] Routine Ultrasound 12/24/24 08:44 Completed Pending at discharge Category Date Time Status Complete Blood Count w/Auto AM LABS Lab 12/25/24 04:00 Ordered Complete Blood Count w/Auto AM LABS Lab 12/26/24 04:00 Ordered Comprehensive Metabolic Panel AM LABS Lab 12/25/24 04:00 Ordered Comprehensive Metabolic Panel AM LABS Lab 12/26/24 04:00 Ordered US renal doppler [CV renal doppler [id number]] Routine Ultrasound 12/24/24 08:44 Ordered Laboratory Results WBC 10.04 10^3/uL (3.29-11.43) 12/24/24 04:45 RBC 5.05 10^6/uL (3.85-5.65) 12/24/24 04:45 Hgb 15.00 g/dL (11.27-16.99) 12/24/24 04:45 Hct 42.5 % (37-53) 12/24/24 04:45 MCV 84.2 fl (82-101) 12/24/24 04:45 MCH 29.7 pg (27-33) 12/24/24 04:45 MCHC 35.3 g/dL (30-55) 12/24/24 04:45 RDW 12.6 % (12.1-15.1) 12/24/24 04:45 Plt Count 229 10^3/cmm (157-399) 12/24/24 04:45 MPV 9.7 fL (7.4-10.4) 12/24/24 04:45 Neut % (Auto) 58.9 % 12/24/24 04:45 Lymph % (Auto) 30.2 % 12/24/24 04:45 [place] % (Auto) 8.8 % 12/24/24 04:45 Eos % (Auto) 0.8 % 12/24/24 04:45 Baso % (Auto) 0.6 % 12/24/24 04:45 Neut # (Auto) 5.92 10^3/uL (1.8-7.7) 12/24/24 04:45 Lymph # (Auto) 3.0 10^3/uL (0.8-4.8) 12/24/24 04:45 [place] # (Auto) 0.9 10^3/uL (0.2-0.9) 12/24/24 04:45 Eos # (Auto) 0.1 10^3/uL (0.0-0.8) 12/24/24 04:45 Baso # (Auto) 0.1 10^3/uL (0.0-0.1) 12/24/24 04:45 Nucleated RBC % (auto) 0 % 12/24/24 04:45 Nucleated RBCs # 0.0 /100WBC 12/24/24 04:45 Sodium 140 mmol/L (136-145) 12/24/24 04:45 Potassium 3.7 mmol/L (3.5-5.1) 12/24/24 04:45 Chloride 103 mmol/L (98-107) 12/24/24 04:45 Carbon Dioxide 26 mmol/L (22-29) 12/24/24 04:45 Anion Gap 14.7 (5-19) 12/24/24 04:45 BUN 16 mg/dL (6-20) 12/24/24 04:45 Creatinine 0.9 mg/dL (0.7-1.2) 12/24/24 04:45 GFR Calculation 89.7 mL/min (90-130) L 12/24/24 04:45 Glucose 89 mg/dL (65-115) 12/24/24 04:45 Estimat Average Glucose 108 12/23/24 14:10 Hemoglobin A1c 5.4 % (4.0-6.0) 12/23/24 14:10 Calculated Osmolality 291 mOsm/kg (285-295) 12/24/24 04:45 Calcium 8.9 mg/dL (8.5-10.5) 12/24/24 04:45 Total Bilirubin 0.6 mg/dL (0.15-1.2) 12/24/24 04:45 AST 17 U/L (0-40) 12/24/24 04:45 ALT 33 U/L (0-41) 12/24/24 04:45 Alkaline Phosphatase 87 U/L (40-130) 12/24/24 04:45 Troponin T Baseline 12 ng/L (0-15) 12/23/24 14:10 Troponin T 120 Minute 10.02 ng/L (0-15) 12/23/24 16:46 Delta Troponin T -1.98 ABS# (0-10) L 12/23/24 16:46 Troponin T Hi Sens 6Hr 8.18 ng/L (0-15) 12/23/24 20:34 Troponin T Hi Sens 6Hr Delta -3.82 ng/L (0-12) L 12/23/24 20:34 Total Protein 7.0 g/dL (6.6-8.7) 12/24/24 04:45 Albumin 4.2 g/dL (3.5-5.2) 12/24/24 04:45 Globulin 2.8 g/dL (1.3-4.6) 12/24/24 04:45 Triglycerides 177 mg/dL (0-150) H 12/23/24 15:03 Cholesterol 162 mg/dL (0-200) 12/23/24 15:03 LDL Cholesterol, Calc 94 mg/dL (50-129) 12/23/24 15:03 HDL Cholesterol 33 mg/dL (60-100) L 12/23/24 15:03 LDL/HDL Ratio 2.85 RATIO (0.00-3.22) 12/23/24 15:03 Cholesterol/HDL Ratio 4.91 mg/dL (1.0-5.00) 12/23/24 15:03 TSH 1.19 uIU/mL (0.27-4.20) 12/23/24 15:03 Urine Color Yellow (Yellow) 12/23/24 20:51 Urine Appearance Clear (CLEAR) 12/23/24 20: Urine pH 6.5 (5-7) 12/23/24: Ur Specific [place] 1.013 (1.005-1.030) 12/23/24 20: Urine Protein 1+ (Negative) A 12/23/24: Urine Glucose (UA) Negative (Normal) 12/23/24 20: Urine Ketones Negative (Negative) 12/23/24: Urine Blood Trace (Negative) A 12/23/24 20:51 Urine Nitrate Negative (Negative) 12/23/24 20: Urine Bilirubin Negative (Negative) 12/23/24 20: Urine Urobilinogen 1.0 mg/dL (Negative) 12/23/24 20: Ur Leukocyte Esterase Negative (Negative) 12/23/24: Urine RBC 0-4 /hpf (0-2) H 12/23/24 20:51 Urine WBC 0-4 /hpf (0-5) H 12/23/24 20:51 Ur Squamous Epith Cells None /hpf (0-5) 12/23/24 20: Amorphous Sediment Not Reportable 12/23/24 20:51 Urine Bacteria Trace /hpf (NONE) 12/23/24 20:51 Vitals Last Vital Signs Temp 97.0 F L 12/24/24 11:09 Pulse 70 12/24/24 11:09 Resp 16 12/24/24 11:09 BP 156/96 12/24/24 12:04 Pulse Ox 94 12/24/24 11:09 O2 Del Method Room Air 12/24/24 11:09 Discharge Plan Discharge Patient Disposition: Home Condition: Stable Prescriptions: New clonidine HCl 0.1 mg tablet 0.1 mg PO DAILY PRN (Reason: hypertension) Qty: 20 0RF Rx Instructions: For Systolic >185 diastolic >100. If you are needing this more than once a day you need to follow with your primary care provider clonidine HCl 0.1 mg Tablet 0.1 mg PO Q12H 30 Days Qty: 60 0RF hydralazine 25 mg Tablet 25 mg PO Q8H 30 Days Qty: 90 0RF Continued telmisartan 80 mg tablet 80 mg PO DAILY Qty: 30 5RF chlorthalidone 25 mg tablet 25 mg PO DAILY Qty: 30 2RF citalopram [Celexa] 40 mg tablet 40 mg PO DAILY Qty: 90 1RF vitamin H04-csqxa acid 0.5-1 mg Tablet 1 tab PO DAILY Changed amlodipine 10 mg tablet 10 mg PO DAILY 30 Days Qty: 30 0RF Discontinued prednisone 20 mg tablet 20 mg PO DAILY Qty: 7 0RF amoxicillin-pot clavulanate 875-125 mg tablet 1 tab PO BID Qty: 20 0RF naproxen 375 mg tablet 375 mg PO BID Qty: 30 0RF Referrals: Rhonda Saravia FNP [Primary Care Provider, Nurse Practitioner] - 12/27/24 11:00 am Lilly Paiz MD [Physician, Endocrinology] - 4-7 days Discharge Diet: Usual diet Discharge Activity: Increase activity as tolerated Patient Instructions: Clonidine (By mouth), Hypertension (ED), Opioid Safety, Pain Management, Patient Portal & Zita Instructions Activity Restrictions/Additional Instructions: Thank you for choosing [facility] for your healthcare needs today. You have been screened and evaluated and felt safe for discharge. Health conditions do change or evolve sometimes and as such it is important that you follow up with your Primary Doctor to be re checked, 3-5 days is a general good time frame for follow up. You are always welcome to return to the ED for re assessment if your symptoms are worsening or you have new concerns Discharge Attestations Time Spent in Discharge Care*: greater than 30 min Status at Discharge: Cognitive status at discharge: cognitively intact, Behavioral status at discharge: cooperative, Quality Metrics Clinical Quality Measures [ No reported AMI, CVA or VTE this stay] Coding Level of Care Code 81020 Total time (in minutes) for Discharge: 45 Diagnoses Hypertensive urgency I16.0
--- NOTE | 2024-12-24 14:39 | ECG_ITS ---
Cubicl Test Date: 2024-12-25 Pat Name: Marv Keenan Department: Room: 105 Gender: Male Ob Nurse: : 1975 Requested By: Adam Jennings Order Number: [id number] Lilly MD: JACY MA Interpretive Statements Lung unchanged pre/post procedure; Intraprocedure shortess of breath; Symptoms resoled by discharge NOTE: Please note that this is the electrocardiogram portion of the Lexiscan/Sestamibi stress test. The perfusion scan will be documented separately. DATA: Baseline heart rate was 62 beats per minute. Baseline blood pressure was 150/107 millimeters of mercury. Target heart rate was 171. Maximum heart rate achieved was 139. which was 81% of the predicted target heart rate. Maximum blood pressure was 168/107 millimeters of mercury. The reason for ending the test was completion of the protocol. The patient did not experience any symptoms. ELECTROCARDIOGRAM: BASELINE: Sinus rhythm. Left axis. Otherwise, no ST-T changes suggestive of ischemia noted. No arrhythmia noted. EXERCISE: After Lexiscan injection, no ST-T changes suggestive of ischemic noted. No arrhythmia noted. CONCLUSION: Please note due to baseline abnormality of the EKG specificity and sensitivity of the EKG portion of LexiScan MIBI stress test will be low 1. EKG not suggestive of ischemia 2. Lexiscan injection unremarkable. 3. Perfusion scan will be documented separately. Electronically Signed On 12-29-2024 22:48:36 CDT by JACY MA [email or web address] [id number]
--- NOTE | 2024-12-24 16:25 | P.PN_ITS ---
Subjective 2 Subjective: Patient was seen this morning, currently on a Cardene drip, discussed weaning of Cardene drip, monitoring clinical status Vitals/I&O/Wt Last Vital Signs Temp 97.5 F L 12/24/24 16:00 Pulse 65 12/24/24 16:00 Resp 20 H 12/24/24 16:00 BP 131/77 12/24/24 16:00 Pulse Ox 92 12/24/24 16:00 O2 Del Method Room Air 12/24/24 16:00 12/24/24 12/24/24 12/24/24 06:59 14:59 22:59 Intake Total 630 / 1304.167 440.0 / 440.0 Output Total 500 / 500 Balance 630 / 1004.167 -60.0 / -60.0 Weight last 48 hrs Weight 136.6 kg Weight 134.3 kg Weight 119.748 kg Physical Exam 2 Const: COMMON NORMALS: no acute distress and patient oriented x3 Resp: COMMON NORMALS: normal respiratory effort, No retractions, No use of accessory muscles and clear to auscultation bilaterally AUSCULTATION: clear to auscultation bilaterally Cardio: COMMON NORMALS: regular rate, regular rhythm, S1 normal heart sound present and S2 normal heart sound present RATE: regular rate RHYTHM: r egular rhythm HEART SOUNDS: S1 normal heart sound present and S2 normal heart sound present GI: COMMON NORMALS: Normal to inspection, nondistended, normoactive bowel sounds present and non-tender Extremity: COMMON NORMALS: no pedal edema Neuro: COMMON NORMALS: patient oriented x3 Psych: COMMON NORMALS: mental status grossly normal Data 12/24/24 04:45 12/24/24 04:45 A&P Assessment and plan 1. Hypertensive urgency: - Currently on a Cardene drip, will wean off - Goal reduce systolic blood pressure less than 160, diastolic less than 100 - Transition to p.o. blood pressure medications hydralazine, Coreg -Telemetry monitoring, neurochecks -CONCLUSIONS Mild diffuse hypokinesis of left ventricular ejection fraction of 45 to 50%. Mildly dilated left ventricle.mild left ventricular hypertrophy. Grade I/IV diastolic dysfunction (abnormal relaxation filling pattern), normal to mildly elevated filling pressures. Thickened aortic valve. No significant valvular abnormalities. There is no pericardial effusion. Compared to the study from 11/11/2022, there is slight decline in the LV ejection fraction from 55% to 45 -50% -No chest pain complaints -Aspirin, statin -N.p.o. at midnight for stress test tomorrow - Full code - Lovenox for DVT prophylaxis PDMP PDMP Reviewed: Not Reviewed Attestations 2 Medical Necessity Statement*: Patient requires hospitalization for hypertension Diagnoses Hypertensive urgency I16.0
[2024-12-24] MEDS: pantoprazole 40 mg SDV IVP (20:35)
[2024-12-25] VITALS (16 sets, daily range): BP systolic 125–156; BP diastolic 74–104; PULSE 54–71; RESP 6–23; TEMP 36.6–36.8; O2SAT 89–97
[2024-12-25 03:32] LABS: Hematocrit 42.8 % (37-53); Hemoglobin 15.00 g/dL (11.27-16.99); Mean Corpuscular HGB Conc 35.0 g/dL (30-55); Mean Corpuscular Hemoglobin 30.5 pg (27-33); Mean Corpuscular Volume 87.2 fl (82-101); Nucleated Red Blood Cells % 0 %; Platelet Count 219 10^3/cmm (157-399); Red Blood Count 4.91 10^6/uL (3.85-5.65); White Blood Count 8.66 10^3/uL (3.29-11.43)
[2024-12-25 03:55] LABS: Alanine Aminotransferase 32 U/L (0-41); Albumin Level 4.0 g/dL (3.5-5.2); Alkaline Phosphatase 86 U/L (40-130); Anion Gap 17.6 (5-19); Aspartate Amino Transferase 15 U/L (0-40); Blood Urea Nitrogen 21 mg/dL (6-20); Calcium 9.0 mg/dL (8.5-10.5); Carbon Dioxide 24 mmol/L (22-29); Chloride 102 mmol/L (98-107); Globulin 2.7 g/dL (1.3-4.6); Glucose 83 mg/dL (65-115); Osmolality Calculated 292 mOsm/kg (285-295); Potassium 3.6 mmol/L (3.5-5.1); Sodium 140 mmol/L (136-145); Total Protein 6.7 g/dL (6.6-8.7)
[2024-12-25] MEDS: CITALOPRAM 40 MG TABLET PO (05:07)
[2024-12-25] MEDS: LOSARTAN 100 MG TABLET PO (05:08)
--- NOTE | 2024-12-25 09:18 | PC.CHAP ---
Pastoral Care Encounter/Spiritual Assessment Type of Contact [] Declined outreach analyst visit [] Patient/Family/Request visit [] Outpatient visit [] Follow-up visit [] Physician referral [] Code/Alert [x] Routine visit [] Staff referral [] Actively dying [] Patient sleeping [x] Family support [] [] Out of room [] Palliative care [] [] Receiving care in room [] Pre-surgical visit [] Trauma [] Long length of stay [] ICU visit [] Other: Relational/Emotional Strength [x] Patient feels connected with others/family/visitors/staff [] Distress [] Loneliness/isolation [] Abandonment Spirituality of Patient [x] Person of Sabrina [] Attends Buddhism of their [place]rina [x] Believes in Prayer [] Reads Bible or Rastafarian materials [] There are Spiritual issues to be addressed [employer] Interventions [x] Prayer [x] Active listening [] Non-anxious presence [x] Spiritual/emotional support [] Crisis/trauma care [] Spiritual counseling [] Bereavement support [] Provided bereavement packet [] Provided Bible/devotional materials [] Provided toy/stuffed animal, coloring book to patient or family member [] Provided Communion [] Anointing/[place] [] Salvation [x] Completed spiritual assessment [] Other: Impact on Illness or Injury [] Angry [] Fearful [] Anxious [] Often cries [] Exhaustion [] Unable to work [] Unable to attend buddhist [] Unable to walk/stand [] Unable to read [] Unable to drive [] Unable to eat/drink [] Unable to sleep [] Unable to be with family [] Patient intubated [] Other: Summary Time spent with patient 5 min
--- NOTE | 2024-12-25 11:37 | P.CONIM_ITS ---
<Statement entered by Thor Dockery MD - 12/25/24 20:23> Patient was evaluated and cared for in conjunction with an advanced practice practitioner. I personally examined the patient and reviewed the chart and all pertinent data including imaging, telemetry, and laboratory results. I discussed the patient in detail with the advanced practice practitioner. Please see their note for complete H&P testing result and agreed upon plan of care for the patient. Atypical symptoms Uncontrolled hypertension Abnormal stress test suggestive of ischemia in RCA territory GENERAL: Patient is alert, awake and oriented x3. HEART: Regular S1 and S2. No murmur, rub or gallop. LUNGS: Clear to auscultate bilaterally. CENTRAL NERVOUS SYSTEM: Grossly nonfocal. EXTREMITIES: Lower extremities with out edema bilaterally. Assessment and plan Abnormal stress test Atypical symptom Hypertension Hyperlipidemia Given nature of abnormal stress test in the inferior wall with him sized area of reversibility suggestive of possible lesion in RCA territory we offered patient left heart cath at the moment he is on decisive since his daughter has birthday tomorrow he thinks that he may will do it as an outpatient. Patient has been discussed regarding in case of presence of true lesion he may can suffer heart attack sudden cardiac arrhythmia heart failure and damage to cardiac muscles, patient clearly understood it and would like to decide. Will deal accordingly Providers/Reason For Consult 2 Consulting Physician/Specialty*: Dr. Dockery, interventional cardiology Reason for Consult*: Abnormal stress test, new onset LV dysfunction Requesting Physician: Adam Jennings MD Attending Physician: Adam Jennings MD Primary Care Provider: FROYLAN Evans History of Present Illness History of Present Illness Marv Keenan is a 49 year old male with past medical history of hypertension, moderate obstructive sleep apnea, presented to the emergency room after hypertensive emergency noted in a podiatry office visit. He was admitted to the hospital, blood pressure gradually reduced with Cardene infusion. ER workup revealed no significant laboratory abnormalities, troponin series: 12?>10?>8. EKG showed sinus rhythm with inferolateral T wave abnormalities, similar to 2022. Echocardiogram revealed decrease in LV function, previously in 2022 was 55% now decreased to 45 to 50% with mild diffuse hypokinesia. Stress test performed today shows moderate mandi-infarct ischemia in the RCA distribution. He has not had any chest pain, shortness of breath, orthopnea, clinically not in heart failure, however he has been more fatigued lately. No history of PA, CAD, cardiomyopathy. He uses chewing tobacco. Review of Systems 2 Const: Reports: fatigue; Denies: fever(s), chills, change in weight or diaphoresis Eyes: Denies: change in vision ENMT: Denies: epistaxis Card: Denies: chest pain, palpitations, irregular heart rhythm, edema, syncope, pre-syncope, dyspnea on exertion, orthopnea or leg pain with exertion Resp: Denies: dyspnea, productive cough or wheezing GI: Denies: nausea, vomiting, hematemesis, hematochezia or melena : Denies: hematuria Musc: Denies: extremity swelling [place]/Lymph: Denies: easy bruising or easy bleeding Medications/Allergies Home Medications ?Medication ?Instructions ?Recorded ?Confirmed ?Last Taken ?Type vitamin B12 0.5 mg-folic acid 1 mg 1 tab PO DAILY 10/2612/23/24 12/23/24 History tablet telmisartan 80 mg tablet 80 mg PO DAILY #30 tabs 04/3012/23/24 12/23/24 09:00 Rx citalopram 40 mg tablet (Celexa) 40 mg PO DAILY #90 ta bs 12/09/24 12/23/24 12/23/24 09:00 Rx chlorthalidone 25 mg tablet 25 mg PO DAILY #30 tabs 12/23/24 12/23/24 08:00 Rx clonidine HCl 0.1 mg tablet 0.1 mg PO DAILY PRN hypert ension 12/23/24 Unknown Rx #20 tabs amlodipine 10 mg tablet 10 mg PO DAILY 30 days #30 t abs 12/24/24 12/23/24 12/23/24 08:00 Rx aspirin 81 mg tablet 81 mg PO DAILY 30 days #30 t abs 12/24/24 Unknown Rx atorvastatin 40 mg tablet (Lipitor) 40 mg PO DAILY 30 days #30 tabs 12/24/24 Unknown Rx clonidine HCl 0.1 mg tablet 0.1 mg PO Q12H 30 days #60 tabs 12/24/24 Unknown Rx hydralazine 25 mg tablet 25 mg PO Q8H 30 days #90 tab s 12/24/24 Unknown Rx Allergies Allergy/AdvReac Type Severity Reaction Status Date / Time No Known Allergies Allergy Verified 12/23/24 13:11 Current Medications Generic Name Dose Route Start Last Admin Trade Name Arnaud PRN Reason Stop Dose Admin Amlodipine Besylate 10 mg 12/24/24 08:45 12/25/24 05:08 Amlodipine 10 Mg Tablet PO 10 mg DAILY RYAN Administration Aspirin 81 mg 12/24/24 14:40 12/25/24 05:07 Aspirin 81 Mg Ec Tablet PO 81 mg DAILY RYAN Administration Atorvastatin Calcium 40 mg 12/24/24 21:00 12/24/24 20:36 Atorvastatin 40 Mg Tablet PO 40 mg BEDTIME RYAN Administration Chlorthalidone 25 mg 12/24/24 05:00 12/25/24 05:08 Chlorthalidone 25 Mg Tablet PO 25 mg DAILY RYAN Administration Citalopram Hydrobromide 40 mg 12/24/24 05:00 12/25/24 05:07 Citalopram 40 Mg Tablet PO 40 mg DAILY RYAN Administration Clonidine HCl 0.1 mg 12/24/24 11:45 12/24/24 23:40 Clonidine 0.1 Mg Tablet PO 0.1 mg Q12H RYAN Administration Enoxaparin Sodium 40 mg 12/23/24 19:30 12/24/24 20:36 Enoxaparin 40 Mg/0.4 Ml Syringe SUBCUT 40 mg Q24H RYAN Administration Hydralazine HCl 25 mg 12/24/24 08:45 12/25/24 09:01 Hydralazine 25 Mg Tablet PO 25 mg Q8H RYAN Administration Losartan Potassium 100 mg 12/24/24 05:00 12/25/24 05:08 Losartan 100 Mg Tablet PO 100 mg DAILY RYAN Administration Pantoprazole Sodium 40 mg 12/23/24 19:30 12/24/24 20:35 Pantoprazole 40 Mg Sdv IVP 40 mg Q24H RYAN Administration PFSH Acute 2 PFSH: Medical History Depression Essential hypertension Social History Smoking and tobacco/nicotine status: light tobacco/nicotine user Second hand smoke exposure: No Alcohol intake: never Substance/Drug Use: never Vitals/I&O/Wt Last Vital Signs Temp 98.3 F 12/25/24 04:00 Pulse 70 12/25/24 10:20 Resp 23 H 12/25/24 10:20 BP 156/97 12/25/24 10:20 Pulse Ox 94 12/25/24 10:20 O2 Del Method Nasal Cannula 12/25/24 04:00 12/24/24 12/25/24 12/25/24 22:59 06:59 14:59 Intake Total 580 / 1220.0 200 / 1220.0 240 / 240 Balance 580 / 720.0 200 / 720.0 240 / 240 Weight last 48 hrs Weight 292 lb 8.854 oz Weight 301 lb 2.423 oz Weight 296 lb 1.293 oz Weight 264 lb Physical Exam 2 Const: COMMON NORMALS: no acute distress and patient oriented x3 GENERAL APPEARANCE: cooperative and comfortable ORIENTATION/CONSCIOUSNESS: Yes awake, Yes oriented to person, Yes oriented to place and Yes oriented to time Chest: COMMONS NORMALS: normal inspection of the chest and normal palpation of entire chest wall CHEST: Yes Symmetrical chest wall rise Resp: COMMON NORMALS: normal respiratory effort, No retractions, No use of accessory muscles and clear to auscultation bilaterally EFFORT & INSPECTION: Yes symmetric chest movement AUSCULTATION: clear to auscultation bilaterally Cardio: COMMON NORMALS: regular rate, regular rhythm, S1 normal heart sound present, S2 normal heart sound present, No gallops present (Cardio), No clicks present (Cardio), No murmurs present (Cardio) and No rub (Cardio) RATE: r egular rate RHYTHM: regular rhythm HEART SOUNDS: S1 normal heart sound present and S2 normal heart sound present PERIPHERAL PULSES: radial pulses present Extremity: COMMON NORMALS: no pedal edema Neuro: COMMON NORMALS: patient oriented x3 and moves all extremities S ENSORIUM/ORIENTATION: Yes oriented to person, Yes oriented to place and Yes oriented to time Data 12/25/24 03:15 12/25/24 03:15 A&P Assessment and plan 1. LV dysfunction: 2. Abnormal stress test: 3. Hypertensive urgency: Plan: He requires coronary angiogram for further evaluation of the abnormal stress test and new onset LV dysfunction. His daughter's birthday is tomorrow and he does not want to have the procedure on her birthday if something should go wrong . He would prefer to have the procedure as an outpatient at the beginning of next week. Will look into insurance authorization to see if that would be possible. For now continue aspirin, statin, amlodipine, losartan, chlorthalidone, hydralazine. Blood pressure is controlled. Update: Patient is adamant he would like to go home, knowing risks of possible PA if he has a significant stenosis which is untreated at this point. He can go home, will arrange follow-up in the cardiology clinic [facility], coronary angiogram can be ordered at that point. No changes to medications. PDMP PDMP Reviewed: Not Reviewed Coding Level of Care Code Acute Code for Chg Fwd Diagnoses LV dysfunction I51.9 Abnormal stress test R94.39 Hypertensive urgency I16.0
--- NOTE | 2024-12-25 14:39 | NMCV_ITS ---
NM valentine perf SPECT r/s* [id number] Marv Keenan Age: 49 Gender: M : 1975 Exam Date: 12/25/2024 06:21 Ordering Phys: Adam Jennings MD Technologist: BELKYS Fuller Exam Location: [facility] Indications: cp STRESS TEST [facility] IMAGE PROTOCOL Rest/Stress 1 Lexiscan Day Radiopharmaceutical Dose (mCi) Administration Site Administered by Rest: Tc-99m 11 IV BELKYS Fuller Sestamibi Stress:Tc-99m 33 IV BELKYS Manning Sestamibi Rest: 25-Dec-2024 60 Discovery 630 Stress: 25-Dec-2024 30 Discovery 630 0.4mg Lexiscan. Images obtained in supine and prone position. SPECT RESULTS Technical Quality: Good Raw Data Analysis: Normal Image Corrections: No attenuation or motion correction applied Summed Stress Score: 10 Summed Rest Score: 2 Summed Difference Score: 8 PERFUSION FINDINGS Medium sized area of fixed perfusion defect noted in basal to distal inferior and inferolateral wall surrounded by medium sized area of moderate reversibility suggestive of ischemia in dominant RCA territory. FUNCTIONAL RESULTS (calculated via Gated SPECT) Stress Image LV EF (%): 39 Stress EDV (mL):231 TID: 0.95 Stress ESV (mL):141 FUNCTIONAL FINDINGS: Basal to distal inferior wall akinesis IMPRESSIONS Medium to large sized area of old myocardial infarction surrounded by medium sized area of moderate mandi-infarct ischemia noted in the basal to distal inferior and inferolateral wall, it is suggestive of possible lesion in the dominant RCA territory. Thor Dockery MD (Electronically Signed) Final Date: 25 December 2024 10:42 S
--- NOTE | 2024-12-25 17:10 | PC.NURSE ---
Patient discharged to home. Instruction provided regarding follow up information and new medications. Patient verbalized complete understanding. Patient left ambulatory. Medications provided meds to beds. Patient denies pain or needs. No distress observed.
== END 2024-12-25 16:15 | disposition home or self-care (01) | DRG 305 ==
LOC: ER 15:43 → CSU 17:44
PROVIDERS: Admitting Provider Family Medicine; Emergency Provider Emergency Medicine; PCP Nurse Practitioner; Visit Provider Family Medicine
DX: I16.0 Hypertensive urgency (principal); I10 Essential (primary) hypertension; E78.5 Hyperlipidemia, unspecified; G47.33 Obstructive sleep apnea (adult) (pediatric); F17.220 Nicotine dependence, chewing tobacco, uncomplicated; R94.39 Abnormal result of other cardiovascular function study; I25.2 Old myocardial infarction
CPT/HCPCS: 36415; 78452; 80048; 80053; 80061; 81001; 83036; 84443; 84484; 85025; 93005; 93306; 93975; 94664; 96365; 96372; 99285; A9500; J1650; J2404; J2470; J2785; J9999

== ENCOUNTER 2024-12-30 09:14 | Outpatient (CLI) | payer MEDICAID, SELFPAY ==
[2024-12-30] VITALS (16 sets, daily range): BP systolic 87–164; BP diastolic 58–104; PULSE 71–94; RESP 14–18; TEMP 36.9; O2SAT 91–98; BMI 45.7
--- NOTE | 2024-12-30 09:17 | XACV_ITS ---
Exam Room: 2 Ht: 170 cm Wt: 132 kg BSA: 2.57 m2 Gender: Male : 1975 Any Known Allergies: No known allergies Exam Priority: Routine Procedure(s): Procedure Description: Diagnostic procedure Procedure Description: Left Heart Catheterization Procedure Description: Left ventriculography Procedure Description: Coronary Angiography Nahed DUBOSE; Diagnostic Cath Status: Elective Conclusions 1. Left main is normal LAD: Has luminal irregularity without significant stenosis Left circumflex has luminal irregularity without significant stenosis Ramus intermedius has no significant stenosis RCA is a dominant vessel without any significant stenosis Left ventriculography was performed: Left ventricle end-diastolic pressure was normal, normal left ventricular ejection fraction 65% without wall motion abnormality. Recommendations * 1-Return to inpatient for close monitoring and routine cath care 2-Risk factor modification for secondary prevention 3-Statin and aspirin 81 mg life-long, if tolerated 5-Continue optimal medical management 6-Follow up with Dr. Dockery in four weeks and your primary care in 10 days. Diagnostic RX Recommendation: medical therapy and/or counseling Ventriculography Ejection Fraction: 65.0 % Pressures Phase:Rest AO : 85 / 72 ( 78 ) @ 11:20:00 AM 132 / 88 ( 104 ) @ 11:28:00 AM 131 / 88 ( 103 ) @ 11:28:00 AM LV : 139 / -3 / 17 @ 11:27:00 AM 142 / -6 / 17 @ 11:28:00 AM 143 / -7 / 16 @ 11:28:00 AM Valves Phase:DefaultPhase AV : 10.0 @ 10:36:35 AM AV Mean Gradient: 22.0 @ 10:36:35 AM Clinical Evaluation EBL: 5mL-10mL Procedural Details Procedure Consent Obtained. Pre-Procedure Time Out. Identified patient by full name and date of as verbalized by the patient/guarantor. Does the consent match the physician's order: Yes. Accurate & Complete Informed Consent: Yes. Inpatient/Outpatient History & Physical on Chart: Yes. If H&P is completed, is and addenduem needed: No. Visualize and Verify Site with Patient/Guarantor: N/A. Relevant Radiology Images available: Yes. The risks, benefits, and alternatives of sedation and/or procedure were discussed by physician. The patient agrees to continue. Procedure started. [facility] Clinical Fraility Score: 3: Managing Well. [employer] Indications: New Onset Angina/Abnormal stress test. Chest Pain Symptom Assessment: Typical Angina Symptoms. Cardiovascular Instability: No. Correct patient, site and procedure confirmed by cath team. PERRLA. 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 Lungs clear x 5 lobes. IV Site on Arrival: 20 gauge in the right anticubital. IV Fluids: 0.9% NaCl at KVO. 0 mL infused prior to cath lab radiological technologist. Pre Procedural Pulses: bilateral dorsalis pedis was 3+. Pre Procedural Pulses: bilateral posterior tibial was 3+. Pre Procedural Pulses: bilateral radial was 3+. Oxygen started at 2liters/min via nasal canula. right groin was prepped with chloroprep then draped in the usual sterile fashion. right radial was prepped with chloroprep then draped in the usual sterile fashion. Physician notified. Baseline sample Acquired. HR: 81 BPM. Patient's family in CPRU room #4. Dr. Dockery will update at he completion of the procedure. Equipment: 6F - Radial. Cardiac Cath Pack. ACIST Manifold Kit Model BT 2000. Heparinized Saline (2 units/mL), 1000 mL bag. Physician arrived. Physician scrubbed in. Immediate Pre-Procedure Time Out. Correct Patient: Yes; Correct Procedure: Yes; Correct Site: Yes; Correct Patient Position: Yes; Correct Supplies: Yes; Dried Flammable Prep: Yes; Blood Products Available: N/A;. Lidocaine 1% infiltrated to the right radial. Arterial access obtained. A 5 stateless TIG catheter in over the exchange J wire. Multiple views taken of right coronary artery. Catheter redirected to the LCA. Multiple views taken of left coronary artery. Catheter removed over the exchange J wire. A 5 stateless Angled Pig catheter in over the standard J wire. EDP Sample taken: LV 139/-4,17; HR: 86 BPM; SpO2: 96%. LV gram performed in [place] @ 10 mL/second for a total of 30 mL. EDP Sample taken: LV 142/-7,17; HR: 90 BPM; SpO2: 94%. Pullback taken: LV 143/-7,16; AO 132/88(104); Mean: 22mmHg, Peak to Peak: 10mmHg, SEP: 8sec/min; HR: 87 BPM; SpO2: 98%. Catheter removed over the exchange J wire. Dr. Dockery scrubbed out. A TR Band was successful obtaining hemostatsis at the Right Radial artery insertion site. Post Procedure: Pulses reassessed and unchanged. PERRLA. 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 No VTE prophylaxis required. Medication's Wasted: Lidocaine 1% = 18 mL. Medication's Wasted: Nitro = 49.8 mg. Medication's Wasted: Heparin = 1000 units. Medication's Wasted: Other = Fentanyl 25 mcg. Total IV fluids: 35 mL. Post-op diagnosis: non-obstructive CAD. Complications: none. Estimated blood loss: 5mL-10mL. Responsiveness - Normal response to verbal stimuli; alert and oriented, PERRLA. Airway - Unaffected, no intervention required; spontaneous ventilation. Circulation: W/N/L, pulses unchanged. Nausea/Vomiting: No. Vital chart was stopped. Procedure completed. Patient transferred by wheelchair to CPRU. Access Site Site: Right Radial artery Sheath Size: 6 Fr Hemostasis Method: TR Band Hemostasis Success: Successful Procedure Medications Start: 10:04 AM Stop: 10:04 AM Medication: Versed Amount: 1 mg Route: I.V. Start: 10:04 AM Stop: 10:04 AM Medication: Fentanyl Amount: 50 mcg Route: I.V. Start: 10:09 AM Stop: 10:09 AM Medication: Versed Amount: 1 mg Route: I.V. Start: 10:09 AM Stop: 10:09 AM Medication: Fentanyl Amount: 25 mcg Route: I.V. Start: 10:15 AM Stop: 10:15 AM Medication: Nitrogylcerin Amount: 200 mcg Route: I.A. Start: 10:17 AM Stop: 10:17 AM Medication: Heparin Amount: 5000 units Route: I.V. I, the attending physician, have reviewed and verified all procedure medications. Yes, all medications given per verbal order History/Risk Factors Hypertension: Yes Dyslipidemia: Yes Peripheral Arterial Disease (PAD): No Myocardial Infarction (DE): No Obesity: Yes Renal Disease: No Tobacco Use: Current/Recent(w/in 1 year) Prior Interventions PCI: No CABG: No Valve Surgery: No Report Signatures Finalized by Thor Dockery MD on 12/30/2024 10:51 AM
--- NOTE | 2024-12-30 09:49 | W.PM.OPSUD ---
Surgery/Procedure H&P Update DATE OF PROCEDURE: December 30, 2024 DATE H&P PERFORMED: 12/25/24 H&P UPDATE INFORMATION: I have reviewed H&P completed within last 30 days, I have examined patient prior to procedure and No changes to prior documentation CHANGES TO PREVIOUS DOCUMENTATION: Abnormal stress test Atypical chest pain Uncontrolled hypertension PREOP DIAGNOSIS: Abnormal stress test/atypical chest pain PRIMARY INDICATION FOR PROCEDURE: Abnormal stress test, atypical chest pain PLANNED PROCEDURE: Operation Date: 12/30/24 10:00 Proposed Procedures p Cardiac Catheterization - C w/wo LV & Coros(Left) - Thor Dockery MD PATIENT REASSESSED PRIOR TO SEDATION, WITH NO CHANGE NOTED: Yes PHYSICAL EXAM: alert, oriented x 3, clear to auscultation bilaterally, regular rate & rhythm and operative site marked AIRWAY EVAL/ANESTHESIA PLAN: ASA II, Risks, benefits & alternatives of sedation and/or procedure discussed and Patient agrees to continue as planned ADDITIONAL INFORMATION: All risk-benefit and alternative for the procedure has been explained to the patient. Patient understands 2% risk of stroke major bleed. Patient restand 5% risk of minor bleeding bruising infection pseudoaneurysm hematoma contrast-induced nephropathy urgent emergent vascular bypass surgery. Patient would like to proceed with it.
--- NOTE | 2024-12-30 14:16 | PC.NURSE ---
TR band Removal Note Started releasing air from right radial TR band at 1140. 1-3ml air removed every 5-15 minutes until band deflated. TR band deflated at 1300. Site asymptomatic, no signs of bleeding or hematoma. Radial pulse palpble. Dressed site with large band aid. Educated on reportable signs and symptoms and activity restrictions.
== END 2024-12-30 14:19 | disposition home or self-care (01) ==
PROVIDERS: PCP Nurse Practitioner; Visit Provider Internal Medicine Cardiovascular Disease
DX: R94.39 Abnormal result of other cardiovascular function study (principal); I16.0 Hypertensive urgency; E78.5 Hyperlipidemia, unspecified; E66.9 Obesity, unspecified; Z68.42 Body mass index [BMI] 45.0-49.9, adult; G47.33 Obstructive sleep apnea (adult) (pediatric); Z79.82 Long term (current) use of aspirin; Z79.01 Long term (current) use of anticoagulants; F32.A Depression, unspecified; F17.200 Nicotine dependence, unspecified, uncomplicated; I10 Essential (primary) hypertension
CPT/HCPCS: 36415; 93458; 96365; 99152; C1769; C1887; C1894; J1644; J2250; J3010; J3490; J7030; J9999; Q0163; Q9967

== ENCOUNTER → 2025-01-21 11:20 | Outpatient (BNVA) | payer MEDICAID, SELFPAY | PROVIDERS: PCP Nurse Practitioner; Visit Provider Nurse Practitioner | DX: L98.9 Disorder of the skin and subcutaneous tissue, unspecified (principal) | CPT/HCPCS: 88304 ==